=== PATIENT | female | born 1960 | race Caucasian/White ===

== ENCOUNTER 2018-02-04 17:11 | Emergency (ER) | payer OTHER ==
[~2018-02-04] VITALS: Ht 167.6 cm; Wt 77.7 kg
[2018-02-04 17:46] LABS: BASOPHILS % (AUTO) 0.9 % (0.0-2.0); EOSINOPHILS % (AUTO) 2.4 % (1.0-6.0); HEMATOCRIT 36.7 % (36-46); HEMOGLOBIN 12.5 g/dL (12.0-16.0); LYMPHOCYTES # (AUTO) 1.4 K/uL (1.0-4.8); LYMPHOCYTES % (AUTO) 25.6 % (22.0-44.0); MEAN CORPUSCULAR HEMOGLOBIN 31.7 pg (26.0-34.0); MEAN CORPUSCULAR VOLUME 93 fL (80-100); MONOCYTES # (AUTO) 0.4 K/uL (0.1-1.0); MONOCYTES % (AUTO) 6.7 % (2.0-9.0); NEUTROPHILS # (AUTO) 3.4 K/uL (1.8-7.7); NEUTROPHILS % (AUTO) 64.4 % (40.0-70.0); PLATELET COUNT (AUTO) 207 K/uL (150-450); RED BLOOD CELL COUNT(AUTO) 3.94 MIL/uL (4.00-5.20); RED CELL DISTRIBUTION WIDTH 12.5 % (11.5-14.5)
[2018-02-04 17:54] LABS: ANION GAP 3 mmol/L (8-16); CALCIUM, TOTAL 8.6 mg/dL (8.8-10.5); CARBON DIOXIDE 31 mmol/L (22-29); CHLORIDE 103 mmol/L (98-107); CREATININE 0.97 mg/dL (0.60-1.30); GLOMERULAR FILTR. RATE CALC 59 mL/min (>60); GLUCOSE,RANDOM 177 mg/dL (70-110); POTASSIUM 4.2 mmol/L (3.5-5.1); SODIUM SERUM 137 mmol/L (136-145); UREA NITROGEN, BLOOD 9 mg/dL (7-18)
[2018-02-04 18:02] LABS: ALANINE AMINOTRANSFERASE 17 U/L (12-78); ALBUMIN 3.2 g/dL (3.4-5.0); ALKALINE PHOSPHATASE 42 U/L (46-116); ASPARTATE AMINOTRANSFERASE 16 U/L (15-37); BILIRUBIN,TOTAL 0.3 mg/dL (0.1-1.0); TOTAL PROTEIN, SERUM 6.2 g/dL (6.4-8.2)
[2018-02-04] MEDS ORDERED: LITH300T PO (18:23)
[2018-02-04] MEDS ORDERED: LEVO175T58 PO (18:23)
[2018-02-04] MEDS ORDERED: TRAZ-220 PO (18:23)
[2018-02-04] MEDS ORDERED: PERP16TA5 PO (18:23)
[2018-02-04] MEDS ORDERED: FENO160T16 PO (18:23)
[2018-02-04] MEDS ORDERED: DIVA500T52 PO (18:23)
[2018-02-04] MEDS ORDERED: ATEN25TA PO (18:23)
[2018-02-04] MEDS ORDERED: OXYB5 PO (18:23)
[2018-02-04 18:58] LABS: LITHIUM 0.31 mmol/L (0.60-1.20)
[2018-02-04 18:59] LABS: APPEARANCE,URINE CLEAR (CLEAR); BILIRUBIN,URINE NEGATIVE (NEGATIVE); GLUCOSE, URINE (UA) NEGATIVE (NEGATIVE); KETONES,URINE NEGATIVE (NEGATIVE); LEUKOCYTE ESTERASE ,URINE MODERATE (NEGATIVE); NITRATE,URINE NEGATIVE (NEGATIVE); OCCULT BLOOD,URINE NEGATIVE (NEGATIVE); PH,URINE 7.5 (5.0-8.0); PROTEIN,URINE NEGATIVE (NEGATIVE); UROBILINOGEN,URINE 0.2 mg/dL (<=1.0)
[2018-02-04 19:04] LABS: AMPHET/METH SCREEN,URINE NEGATIVE (NEGATIVE); BACTERIA,URINE Many /HPF (None Seen); BARBITURATE SCREEN, URINE NEGATIVE (NEGATIVE); BENZODIAZEPINES SCREEN,URINE NEGATIVE (NEGATIVE); CANNABINOID SCREEN,URINE NEGATIVE (NEGATIVE); COCAINE SCREEN,URINE NEGATIVE (NEGATIVE); METHADONE SCREEN, URINE NEGATIVE (NEGATIVE); OPIATE SCREEN,URINE NEGATIVE (NEGATIVE); RBC,URINE None Seen /HPF (0-2); SQUAMOUS EPITHELIAL CELL,UR Rare /LPF (None Seen)
[2018-02-04 19:12] LABS: THYROID STIMULATING HORMONE 0.32 uIU/mL (0.36-3.74); VALPROIC ACID 33 mcg/mL (50-100)
[2018-02-04 19:13] LABS: PHENCYCLIDINE SCREEN,URINE NEGATIVE (NEGATIVE)
[2018-02-04] MEDS ORDERED: NITROFURANTOIN/NITROFURAN MAC 100 MG CAPSULE [MACROBID] PO ONE (19:45)
[2018-02-05 01:00] VITALS: BP 126/77
== END 2018-02-05 01:55 | disposition other institution (70) ==
LOC: EMS 17:12
DX: F31.9 Bipolar disorder, unspecified (principal); N39.0 Urinary tract infection, site not specified; F20.9 Schizophrenia, unspecified; F17.210 Nicotine dependence, cigarettes, uncomplicated; Z88.5 Allergy status to narcotic agent; Z88.8 Allergy status to other drugs, medicaments and biological substances; Z79.899 Other long term (current) drug therapy
CPT/HCPCS: 36415; 80053; 80164; 80178; 80307; 81001; 84443; 85025; 87077; 87086; 87186; 99285; 99406; G0480

== ENCOUNTER 2020-01-06 17:12 | Emergency (ER) | payer OTHER ==
[~2020-01-06] VITALS: Ht 167.6 cm; Wt 80.0 kg
[~2020-01-06 17:12] MED LIST: ATEN-73 PO; DIVA-80 PO; FENO160T16 PO; LEVO175T58 PO; LITH300T PO; OXYB5 PO; PERP16TA5 PO; TRAZ-257 PO
[2020-01-06 18:07] LABS: BASOPHILS % (AUTO) 0.6 % (0.0-2.0); EOSINOPHILS % (AUTO) 1.9 % (1.0-6.0); HEMOGLOBIN 15.4 g/dL (12.0-16.0); LYMPHOCYTES # (AUTO) 2.6 K/uL (1.0-4.8); LYMPHOCYTES % (AUTO) 28.2 % (22.0-44.0); MEAN CORPUSCULAR HEMOGLOBIN 31.4 pg (26.0-34.0); MEAN CORPUSCULAR HGB CONC 33.4 G/dL (31.0-37.0); MEAN CORPUSCULAR VOLUME 94 fL (80-100); MONOCYTES # (AUTO) 0.6 K/uL (0.1-1.0); NEUTROPHILS # (AUTO) 5.8 K/uL (1.8-7.7); NEUTROPHILS % (AUTO) 63.3 % (40.0-70.0); PLATELET COUNT (AUTO) 266 K/uL (150-450); RED BLOOD CELL COUNT(AUTO) 4.89 MIL/uL (4.00-5.20); RED CELL DISTRIBUTION WIDTH 13.4 % (11.5-14.5)
[2020-01-06 18:13] LABS: AMPHET/METH SCREEN,URINE NEGATIVE (NEGATIVE); BARBITURATE SCREEN, URINE NEGATIVE (NEGATIVE); BENZODIAZEPINES SCREEN,URINE NEGATIVE (NEGATIVE); CANNABINOID SCREEN,URINE NEGATIVE (NEGATIVE); COCAINE SCREEN,URINE NEGATIVE (NEGATIVE); METHADONE SCREEN, URINE NEGATIVE (NEGATIVE); OPIATE SCREEN,URINE NEGATIVE (NEGATIVE)
[2020-01-06 18:14] LABS: PHENCYCLIDINE SCREEN,URINE NEGATIVE (NEGATIVE)
[2020-01-06 18:22] LABS: ANION GAP 5 mmol/L (8-16); CALCIUM, TOTAL 8.9 mg/dL (8.8-10.5); CARBON DIOXIDE 29 mmol/L (22-29); CHLORIDE 105 mmol/L (98-107); CREATININE 1.23 mg/dL (0.60-1.30); GLOMERULAR FILTR. RATE CALC 44 mL/min (>60); GLUCOSE,RANDOM 128 mg/dL (70-110); POTASSIUM 4.4 mmol/L (3.5-5.1); SODIUM SERUM 139 mmol/L (136-145); UREA NITROGEN, BLOOD 21 mg/dL (7-18)
[2020-01-06 18:26] LABS: ALANINE AMINOTRANSFERASE 19 U/L (12-78); ALBUMIN 3.6 g/dL (3.4-5.0); ALKALINE PHOSPHATASE 39 U/L (46-116); ASPARTATE AMINOTRANSFERASE 15 U/L (15-37); BILIRUBIN,TOTAL 0.2 mg/dL (0.1-1.0); TOTAL PROTEIN, SERUM 6.6 g/dL (6.4-8.2)
[2020-01-06 20:55] LABS: COVID AG,FIA SOURCE NASOPHARYNGEAL
[2020-01-07] MEDS ORDERED: IBUPROFEN 400 MG TABLET PO ONE (00:30)
[2020-01-07] MEDS ORDERED: HALOPERIDOL 5 MG TABLET ONE (04:13)
[2020-01-07] MEDS ORDERED: LORazepam 1 MG TABLET PO ONE (04:15)
[2020-01-07] MEDS ORDERED: HALOPERIDOL 5 MG TABLET PO ONE (04:15)
[2020-01-07 08:35] VITALS: BP 158/90
== END 2020-01-07 10:17 | disposition short-term general hospital (02) ==
LOC: EMS 17:21
DX: F29 Unspecified psychosis not due to a substance or known physiological condition (principal); R45.851 Suicidal ideations; F31.9 Bipolar disorder, unspecified; F20.9 Schizophrenia, unspecified; F17.210 Nicotine dependence, cigarettes, uncomplicated; Z20.828 Contact with and (suspected) exposure to other viral communicable diseases; Z88.5 Allergy status to narcotic agent; Z88.8 Allergy status to other drugs, medicaments and biological substances
CPT/HCPCS: 36415; 80053; 80307; 85025; 87426; 99285; G0480

== ENCOUNTER 2020-07-10 15:50 | Emergency (ER) | payer OTHER ==
[~2020-07-10] VITALS: Ht 175.3 cm; Wt 86.4 kg
[2020-07-10 16:51] LABS: AMPHET/METH SCREEN,URINE NEGATIVE (NEGATIVE); BARBITURATE SCREEN, URINE NEGATIVE (NEGATIVE); BENZODIAZEPINES SCREEN,URINE NEGATIVE (NEGATIVE); CANNABINOID SCREEN,URINE POSITIVE (NEGATIVE); COCAINE SCREEN,URINE NEGATIVE (NEGATIVE); METHADONE SCREEN, URINE NEGATIVE (NEGATIVE); OPIATE SCREEN,URINE NEGATIVE (NEGATIVE); PHENCYCLIDINE SCREEN,URINE NEGATIVE (NEGATIVE)
[2020-07-10 17:42] LABS: BASOPHILS % (AUTO) 0.6 % (0.0-2.0); EOSINOPHILS % (AUTO) 1.6 % (1.0-6.0); HEMATOCRIT 45.6 % (36-46); HEMOGLOBIN 15.4 g/dL (12.0-16.0); LYMPHOCYTES # (AUTO) 2.6 K/uL (1.0-4.8); MEAN CORPUSCULAR HGB CONC 33.7 G/dL (31.0-37.0); MEAN CORPUSCULAR VOLUME 92 fL (80-100); MONOCYTES # (AUTO) 0.8 K/uL (0.1-1.0); NEUTROPHILS # (AUTO) 4.5 K/uL (1.8-7.7); NEUTROPHILS % (AUTO) 55.8 % (40.0-70.0); PLATELET COUNT (AUTO) 267 K/uL (150-450); RED BLOOD CELL COUNT(AUTO) 4.96 MIL/uL (4.00-5.20); RED CELL DISTRIBUTION WIDTH 13.7 % (11.5-14.5)
[2020-07-10 18:01] LABS: ANION GAP 10 mmol/L (8-16); CALCIUM, TOTAL 9.4 mg/dL (8.8-10.5); CARBON DIOXIDE 29 mmol/L (22-29); CHLORIDE 99 mmol/L (98-107); CREATININE 1.14 mg/dL (0.60-1.30); GLOMERULAR FILTR. RATE CALC 48 mL/min (>60); GLUCOSE,RANDOM 375 mg/dL (70-110); POTASSIUM 4.2 mmol/L (3.5-5.1); SODIUM SERUM 138 mmol/L (136-145); UREA NITROGEN, BLOOD 28 mg/dL (7-18)
[2020-07-10 18:05] LABS: ALANINE AMINOTRANSFERASE 23 U/L (12-78); ALBUMIN 3.4 g/dL (3.4-5.0); ALKALINE PHOSPHATASE 73 U/L (46-116); ASPARTATE AMINOTRANSFERASE 14 U/L (15-37); BILIRUBIN,TOTAL 0.3 mg/dL (0.1-1.0); TOTAL PROTEIN, SERUM 6.9 g/dL (6.4-8.2)
[2020-07-10] MEDS ORDERED: LORazepam 2 MG TABLET PO ONE (18:45)
[2020-07-10 18:53] LABS: COVID AG,FIA SOURCE NASOPHARYNGEAL
[2020-07-10] MEDS ORDERED: NICOTINE POLACRILEX 4 MG LOZENGE PO ONE (19:00)
[2020-07-10] MEDS ORDERED: DIAZEPAM 5 MG/ML 2 ML SYRINGE IM ONE (19:15)
[2020-07-10 20:50] LABS: VALPROIC ACID 44 mcg/mL (50-100)
[2020-07-11 02:11] VITALS: BP 129/65
== END 2020-07-11 02:15 | disposition designated cancer center or children's hospital (05) ==
LOC: EMS 15:50
DX: F25.0 Schizoaffective disorder, bipolar type (principal); E11.65 Type 2 diabetes mellitus with hyperglycemia; F17.210 Nicotine dependence, cigarettes, uncomplicated; Z20.822 Contact with and (suspected) exposure to COVID-19
CPT/HCPCS: 36415; 80053; 80164; 80307; 85025; 87426; 96372; 99291; A9575; G0480; J1885

== ENCOUNTER 2020-10-20 08:34 | Emergency (ER) | payer OTHER ==
[~2020-10-20] VITALS: Ht 167.6 cm; Wt 86.4 kg
[2020-10-20] MEDS: DiphenhydrAMINE HCL 25 MG CAPSULE PO ONE ×2 (10:44→10:45)
[2020-10-20] MEDS ORDERED: LORazepam 2 MG TABLET PO ONE (10:45)
[2020-10-20] MEDS ORDERED: HALOPERIDOL 5 MG TABLET PO ONE (10:45)
[2020-10-20] MEDS ORDERED: NICOTINE 21 MG/24 HOUR PATCH TD ONE (11:00)
[2020-10-20 11:27] LABS: BASOPHILS % (AUTO) 0.7 % (0.0-2.0); EOSINOPHILS % (AUTO) 1.1 % (1.0-6.0); HEMATOCRIT 41.7 % (36-46); HEMOGLOBIN 14.1 g/dL (12.0-16.0); LYMPHOCYTES # (AUTO) 1.7 K/uL (1.0-4.8); LYMPHOCYTES % (AUTO) 25.2 % (22.0-44.0); MEAN CORPUSCULAR HEMOGLOBIN 32.5 pg (26.0-34.0); MEAN CORPUSCULAR HGB CONC 33.7 G/dL (31.0-37.0); MEAN CORPUSCULAR VOLUME 96 fL (80-100); MONOCYTES # (AUTO) 0.6 K/uL (0.1-1.0); MONOCYTES % (AUTO) 8.8 % (2.0-9.0); NEUTROPHILS # (AUTO) 4.3 K/uL (1.8-7.7); NEUTROPHILS % (AUTO) 64.2 % (40.0-70.0); PLATELET COUNT (AUTO) 239 K/uL (150-450); RED BLOOD CELL COUNT(AUTO) 4.33 MIL/uL (4.00-5.20); RED CELL DISTRIBUTION WIDTH 16.1 % (11.5-14.5)
[2020-10-20 11:45] LABS: ANION GAP 10 mmol/L (8-16); CALCIUM, TOTAL 9.5 mg/dL (8.8-10.5); CARBON DIOXIDE 26 mmol/L (22-29); CHLORIDE 102 mmol/L (98-107); CREATININE 0.94 mg/dL (0.60-1.30); GLOMERULAR FILTR. RATE CALC 60 mL/min (>60); GLUCOSE,RANDOM 135 mg/dL (70-110); POTASSIUM 4.4 mmol/L (3.5-5.1); SODIUM SERUM 138 mmol/L (136-145); UREA NITROGEN, BLOOD 26 mg/dL (7-18)
[2020-10-20 11:48] LABS: ALANINE AMINOTRANSFERASE 18 U/L (12-78); ALBUMIN 3.6 g/dL (3.4-5.0); ALKALINE PHOSPHATASE 53 U/L (46-116); ASPARTATE AMINOTRANSFERASE 13 U/L (15-37); BILIRUBIN,TOTAL 0.3 mg/dL (0.1-1.0); TOTAL PROTEIN, SERUM 6.8 g/dL (6.4-8.2)
[2020-10-20] MEDS ORDERED: LORazepam 1 MG TABLET PO ONE (15:30)
[2020-10-20 18:03] VITALS: BP 122/68
== END 2020-10-20 21:18 | disposition short-term general hospital (02) ==
LOC: EMS 08:34
DX: F25.9 Schizoaffective disorder, unspecified (principal); F31.9 Bipolar disorder, unspecified; F17.210 Nicotine dependence, cigarettes, uncomplicated; Z88.5 Allergy status to narcotic agent
CPT/HCPCS: 36415; 80053; 85025; 99285; G0480

== ENCOUNTER 2023-01-28 18:38 | Inpatient (IN) | payer MEDICARE, MEDICAID ==
[~2023-01-28] VITALS: Ht 165.1 cm; Wt 60.9 kg
[~2023-01-28 18:38] MED LIST changes: -DIVA-80 PO; +DIVA500T53 PO; -OXYB5 PO; +OXYB5TAB20 PO
[2023-01-28] MEDS ORDERED: DiphenhydrAMINE HCL 50 MG/ML VIAL IM ONE (20:00)
[2023-01-28] MEDS ORDERED: HALOPERIDOL LACTATE 5 MG/ML VIAL IM ONE (20:00)
[2023-01-28] MEDS ORDERED: LORazepam 2 MG/ML VIAL IM ONE (20:00)
[2023-01-28 21:07] LABS: BASOPHILS % (AUTO) 0.4 % (0.0-2.0); EOSINOPHILS % (AUTO) 0.4 % (1.0-6.0); HEMATOCRIT 36.8 % (36-46); HEMOGLOBIN 12.3 g/dL (12.0-16.0); LYMPHOCYTES # (AUTO) 2.5 K/uL (1.0-4.8); LYMPHOCYTES % (AUTO) 27.7 % (22.0-44.0); MEAN CORPUSCULAR HEMOGLOBIN 31.5 pg (26.0-34.0); MEAN CORPUSCULAR HGB CONC 33.4 G/dL (31.0-37.0); MEAN CORPUSCULAR VOLUME 94 fL (80-100); MONOCYTES # (AUTO) 0.8 K/uL (0.1-1.0); MONOCYTES % (AUTO) 9.3 % (2.0-9.0); NEUTROPHILS # (AUTO) 5.6 K/uL (1.8-7.7); NEUTROPHILS % (AUTO) 62.2 % (40.0-70.0); PLATELET COUNT (AUTO) 256 K/uL (150-450); RED BLOOD CELL COUNT(AUTO) 3.91 MIL/uL (4.00-5.20)
[2023-01-28 21:17] LABS: ANION GAP 7 mmol/L (8-16); CALCIUM, TOTAL 9.3 mg/dL (8.8-10.5); CARBON DIOXIDE 27 mmol/L (22-29); CHLORIDE 101 mmol/L (98-107); CREATININE 1.54 mg/dL (0.60-1.30); GLOMERULAR FILTR. RATE CALC 34 mL/min (>60); GLUCOSE,RANDOM 88 mg/dL (70-110); POTASSIUM 3.8 mmol/L (3.5-5.1); SODIUM SERUM 135 mmol/L (136-145); UREA NITROGEN, BLOOD 28 mg/dL (7-18)
[2023-01-28 21:18] LABS: SALICYLATE 5.2 mg/dL (2.8-20.0)
[2023-01-28 21:24] LABS: ALCOHOL, BLOOD (SERUM) < 3 mg/dL (0-10); TROPONIN I-HIGH SENSITIVITY 17 ng/L (<51)
[2023-01-28 21:25] LABS: ALANINE AMINOTRANSFERASE 22 U/L (12-78); ALBUMIN 2.7 g/dL (3.4-5.0); ALKALINE PHOSPHATASE 60 U/L (46-116); ASPARTATE AMINOTRANSFERASE 25 U/L (15-37); BILIRUBIN,TOTAL 0.3 mg/dL (0.1-1.0); TOTAL PROTEIN, SERUM 5.7 g/dL (6.4-8.2)
[2023-01-28 21:27] LABS: ACETAMINOPHEN < 2 mcg/mL (10-30); CREATINE KINASE, TOTAL ONLY 205 U/L (26-192); LIPASE 110 U/L (16-77)
[2023-01-28 21:28] LABS: COVID AG,FIA SOURCE NASAL SWAB
[2023-01-28] MEDS ORDERED: SODIUM CHLORIDE 0.9% 2,000 ML IV ONE (21:45)
[2023-01-28] MEDS ORDERED: PERTUSS(ACELL),DIPH,TET VAC/PF 0.5 ML SYRINGE IM. ONE (21:45)
[2023-01-28 21:46] LABS: SARS-COV2 (COVID) ANTIGEN,FIA Negative (Negative)
[2023-01-29] MEDS ORDERED: ZOLPIDEM TARTRATE 10 MG TABLET PO PRN (02:00)
[2023-01-29] MEDS ORDERED: ACETAMINOPHEN 325 MG TABLET PO PRN (12:30)
[2023-01-29] MEDS ORDERED: LOPERAMIDE HCL 2 MG CAPSULE PO PRN (12:30)
[2023-01-29] MEDS ORDERED: CloNIDine HCL 0.1 MG TABLET PO PRN (12:30)
[2023-01-29] MEDS ORDERED: ALBUTEROL SULFATE HFA 90 MCG/PUFF 8 GM INHALER IH PRN (12:30)
[2023-01-29] MEDS ORDERED: PETROLATUM,WHITE 28 GM JELLY TP PRN (12:30)
[2023-01-29] MEDS ORDERED: ONDANSETRON HCL 4 MG TABLET PO PRN (12:30)
[2023-01-29] MEDS ORDERED: MAG HYDROX/ALUMINUM HYD/SIMETH ES 30 ML SUSPENSION UDCUP PO PRN (12:30)
[2023-01-29] MEDS ORDERED: BACITRACIN 28 GM OINTMENT TP PRN (12:30)
[2023-01-29] MEDS ORDERED: OMEPRAZOLE 20 MG CAPSULE PO PRN (12:30)
[2023-01-29] MEDS ORDERED: DOCUSATE SODIUM 100 MG CAPSULE PO PRN (12:30)
[2023-01-29] MEDS ORDERED: BENZOCAINE/MENTHOL LOZENGE PO PRN (12:30)
[2023-01-29 15:31] VITALS: RESP 18
[2023-01-29] MEDS: IBUPROFEN 600 MG TABLET PO PRN (15:39)
[2023-01-29] MEDS: LORazepam 2 MG TABLET PO PRN (16:40)
[2023-01-29] MEDS: HALOPERIDOL 5 MG TABLET PO PRN (16:40)
[2023-01-29 16:41] VITALS: RESP 18
[2023-01-29] MEDS ORDERED: HALOPERIDOL LACTATE 5 MG/ML VIAL ONE ×2 (16:55→16:59)
[2023-01-29] MEDS ORDERED: LORazepam 2 MG/ML VIAL ONE (16:57)
[2023-01-29] MEDS ORDERED: LORazepam 2 MG/ML VIAL IM ONE (17:00)
[2023-01-29] MEDS ORDERED: DiphenhydrAMINE HCL 50 MG/ML VIAL IM ONE (17:00)
[2023-01-29] MEDS ORDERED: HALOPERIDOL LACTATE 5 MG/ML VIAL IM ONE (17:00)
[2023-01-29] MEDS ORDERED: INFLUENZA VIRUS VACCINE QVS 2023-24 (6MO+)/PF 60 MCG/0.5 ML SYRINGE IM. ONE (18:15)
[2023-01-29] MEDS ORDERED: PNEUMOCOCCAL VACCINE POLYVALENT 0.5 ML SYRINGE [PPSV23] IM. ONE (18:15)
[2023-01-29 20:38] VITALS: RESP 19
[2023-01-30 04:36] VITALS: RESP 18
[2023-01-30] MEDS: LORazepam 2 MG TABLET PO PRN ×2 (04:36→20:08)
[2023-01-30] MEDS: IBUPROFEN 600 MG TABLET PO PRN ×2 (04:37→20:08)
[2023-01-30] MEDS ORDERED: LEVOTHYROXINE SODIUM 50 MCG TABLET PO SCH (06:30)
[2023-01-30] MEDS ORDERED: LEVOTHYROXINE SODIUM 125 MCG TABLET PO SCH (06:30)
[2023-01-30] MEDS: LEVOTHYROXINE SODIUM 50 MCG TABLET PO SCH (06:45)
[2023-01-30] MEDS ORDERED: LEVOTHYROXINE SODIUM 175 MCG PO SCH (09:00)
[2023-01-30] MEDS: OXYBUTYNIN CHLORIDE 5 MG TABLET PO SCH (09:00)
[2023-01-30] MEDS: ATENOLOL 25 MG TABLET PO SCH (09:00)
[2023-01-30 09:39] VITALS: BP 90/58; PULSE 76; RESP 16; TEMP 98.1; O2SAT 96
[2023-01-30] MEDS ORDERED: METF-446 PO (12:29)
[2023-01-30] MEDS ORDERED: LEVO100 PO (12:29)
[2023-01-30] MEDS ORDERED: MELO-108 PO (12:29)
[2023-01-30] MEDS ORDERED: CHOL500013 PO (12:29)
[2023-01-30] MEDS ORDERED: ATEN-72 PO (12:29)
[2023-01-30] MEDS ORDERED: HYDR50CA6 PO (12:29)
[2023-01-30] MEDS ORDERED: CLIN30GE22 TP (12:29)
[2023-01-30] MEDS ORDERED: OMEG-189 PO (12:29)
[2023-01-30] MEDS ORDERED: LEVO125T95 PO (12:29)
[2023-01-30] MEDS: LITHIUM CARBONATE 300 MG TABLET PO SCH (12:30)
[2023-01-30] MEDS: DIVALPROEX SODIUM 500 MG ER TABLET PO SCH (12:53)
[2023-01-30 20:08] VITALS: RESP 17
[2023-01-30] MEDS: TraZODone HCL 100 MG TABLET PO SCH (20:08)
[2023-01-30 21:08] VITALS: RESP 16
[2023-01-30 22:01] VITALS: RESP 17
[2023-01-30] MEDS: TraMADol HCL 50 MG TABLET PO PRN (22:01)
[2023-01-30 23:14] VITALS: RESP 16
[2023-01-31] VITALS (8 sets, daily range): BP systolic 97–124; BP diastolic 61–85; PULSE 70–74; RESP 16–19; TEMP 97.5–97.8; O2SAT 97–98
[2023-01-31] MEDS: LEVOTHYROXINE SODIUM 50 MCG TABLET PO SCH (06:43)
[2023-01-31] MEDS: LITHIUM CARBONATE 300 MG TABLET PO SCH (08:41)
[2023-01-31] MEDS: DIVALPROEX SODIUM 500 MG ER TABLET PO SCH (08:41)
[2023-01-31] MEDS: OXYBUTYNIN CHLORIDE 5 MG TABLET PO SCH (08:41)
[2023-01-31] MEDS: TraMADol HCL 50 MG TABLET PO PRN (08:41)
[2023-01-31] MEDS: ATENOLOL 25 MG TABLET PO SCH (08:41)
[2023-01-31] MEDS: HALOPERIDOL 5 MG TABLET PO PRN (08:43)
[2023-01-31] MEDS: NICOTINE 21 MG/24 HOUR PATCH TD PRN (09:54)
[2023-01-31] MEDS: IBUPROFEN 600 MG TABLET PO PRN ×2 (09:54→18:00)
[2023-01-31] MEDS: LORazepam 2 MG TABLET PO PRN (09:54)
[2023-01-31] MEDS: LIDOCAINE 5% TRANSDERMAL PATCH TD SCH (15:40)
[2023-01-31] MEDS: TraZODone HCL 100 MG TABLET PO SCH (20:16)
[2023-01-31] MEDS: -LIDODERM PATCH NOTE- MISC SCH (21:55)
[2023-02-01] MEDS: LEVOTHYROXINE SODIUM 50 MCG TABLET PO SCH (06:43)
[2023-02-01 08:42] VITALS: RESP 17
[2023-02-01] MEDS: OXYBUTYNIN CHLORIDE 5 MG TABLET PO SCH (09:00)
[2023-02-01 10:15] VITALS: BP 114/71; PULSE 82; RESP 17; O2SAT 97
[2023-02-01] MEDS: ATENOLOL 25 MG TABLET PO SCH (10:18)
[2023-02-01] MEDS: DIVALPROEX SODIUM 500 MG ER TABLET PO SCH (10:18)
[2023-02-01] MEDS: LITHIUM CARBONATE 300 MG TABLET PO SCH (10:18)
[2023-02-01] MEDS: LIDOCAINE 5% TRANSDERMAL PATCH TD SCH (10:19)
[2023-02-01] MEDS: LORazepam 2 MG TABLET PO PRN (11:35)
[2023-02-01 13:22] VITALS: RESP 17
[2023-02-01] MEDS: IBUPROFEN 600 MG TABLET PO PRN (13:22)
[2023-02-01 14:22] VITALS: RESP 16
[2023-02-01 20:55] VITALS: TEMP 97.7
[2023-02-01] MEDS: TraZODone HCL 100 MG TABLET PO SCH (21:14)
[2023-02-01] MEDS: -LIDODERM PATCH NOTE- MISC SCH (21:22)
[2023-02-02] MEDS: LEVOTHYROXINE SODIUM 50 MCG TABLET PO SCH (06:38)
[2023-02-02] MEDS: LITHIUM CARBONATE 300 MG TABLET PO SCH (08:47)
[2023-02-02] MEDS: DIVALPROEX SODIUM 500 MG ER TABLET PO SCH (08:47)
[2023-02-02] MEDS: ATENOLOL 25 MG TABLET PO SCH (08:47)
[2023-02-02] MEDS: OXYBUTYNIN CHLORIDE 5 MG TABLET PO SCH (08:48)
[2023-02-02] MEDS: LIDOCAINE 5% TRANSDERMAL PATCH TD SCH (08:48)
[2023-02-02 09:06] VITALS: BP 145/89; PULSE 89; RESP 19; TEMP 97; O2SAT 99
[2023-02-02] MEDS: NICOTINE 21 MG/24 HOUR PATCH TD PRN (11:21)
[2023-02-02] MEDS ORDERED: NICOTINE 21 MG/24 HOUR PATCH TD SCH (13:00)
[2023-02-02] MEDS: MAGNESIUM HYDROXIDE SUSPENSION 30 ML UDCUP PO PRN (13:12)
[2023-02-02 20:10] VITALS: BP 145/79; PULSE 90; RESP 18; TEMP 97.9; O2SAT 96
[2023-02-02] MEDS: TraZODone HCL 100 MG TABLET PO SCH (20:41)
[2023-02-02] MEDS: -LIDODERM PATCH NOTE- MISC SCH (20:41)
[2023-02-03] MEDS: LEVOTHYROXINE SODIUM 50 MCG TABLET PO SCH (06:03)
[2023-02-03 08:13] VITALS: BP 102/67; PULSE 84; RESP 17; TEMP 97.3; O2SAT 98
[2023-02-03] MEDS: DIVALPROEX SODIUM 500 MG ER TABLET PO SCH (08:33)
[2023-02-03] MEDS: OXYBUTYNIN CHLORIDE 5 MG TABLET PO SCH (08:34)
[2023-02-03] MEDS: NICOTINE 21 MG/24 HOUR PATCH TD SCH (08:34)
[2023-02-03] MEDS: ATENOLOL 25 MG TABLET PO SCH (08:34)
[2023-02-03] MEDS: LIDOCAINE 5% TRANSDERMAL PATCH TD SCH (08:38)
[2023-02-03] MEDS: MAGNESIUM HYDROXIDE SUSPENSION 30 ML UDCUP PO PRN (08:59)
[2023-02-03] MEDS: LITHIUM CARBONATE 300 MG TABLET PO SCH (09:00)
[2023-02-03] MEDS: LORazepam 2 MG TABLET PO PRN (10:08)
[2023-02-03 20:10] VITALS: RESP 18
[2023-02-03] MEDS: TraZODone HCL 100 MG TABLET PO SCH (20:56)
[2023-02-03] MEDS: -LIDODERM PATCH NOTE- MISC SCH (20:56)
[2023-02-03] MEDS: IBUPROFEN 600 MG TABLET PO PRN (22:58)
[2023-02-03 23:00] VITALS: BP 156/98; PULSE 107; RESP 18; TEMP 97.5; O2SAT 96
[2023-02-04] VITALS: RESP 18
[2023-02-04] MEDS: LEVOTHYROXINE SODIUM 50 MCG TABLET PO SCH (06:08)
[2023-02-04 08:24] LABS: APPEARANCE,URINE CLEAR (CLEAR); BILIRUBIN,URINE NEGATIVE (NEGATIVE); COLOR,URINE LIGHT YELLOW (YELLOW); GLUCOSE, URINE (UA) NEGATIVE (NEGATIVE); KETONES,URINE NEGATIVE (NEGATIVE); LEUKOCYTE ESTERASE ,URINE NEGATIVE (NEGATIVE); NITRATE,URINE NEGATIVE (NEGATIVE); OCCULT BLOOD,URINE NEGATIVE (NEGATIVE); PROTEIN,URINE NEGATIVE (NEGATIVE); UROBILINOGEN,URINE <=1.0 mg/dL (<=1.0)
[2023-02-04 08:29] LABS: AMPHET/METH SCREEN,URINE NEGATIVE (NEGATIVE); BARBITURATE SCREEN, URINE NEGATIVE (NEGATIVE); BENZODIAZEPINES SCREEN,URINE NEGATIVE (NEGATIVE); CANNABINOID SCREEN,URINE POSITIVE (NEGATIVE); COCAINE SCREEN,URINE NEGATIVE (NEGATIVE); METHADONE SCREEN, URINE NEGATIVE (NEGATIVE); OPIATE SCREEN,URINE NEGATIVE (NEGATIVE); PHENCYCLIDINE SCREEN,URINE NEGATIVE (NEGATIVE)
[2023-02-04 08:32] LABS: ALCOHOL, URINE DRUG SCREEN NEGATIVE (NEGATIVE)
[2023-02-04 08:43] VITALS: BP 106/71; PULSE 99; RESP 17; TEMP 97.3; O2SAT 98
[2023-02-04 08:55] LABS: BACTERIA,URINE None Seen /HPF (None Seen); RBC,URINE None Seen /HPF (0-2); SQUAMOUS EPITHELIAL CELL,UR None Seen /LPF (None Seen); WBC,URINE None Seen /HPF (0-5)
[2023-02-04] MEDS: LITHIUM CARBONATE 300 MG TABLET PO SCH ×2 (09:00→09:04)
[2023-02-04] MEDS: OXYBUTYNIN CHLORIDE 5 MG TABLET PO SCH ×2 (09:00→09:04)
[2023-02-04] MEDS: DIVALPROEX SODIUM 500 MG ER TABLET PO SCH (09:04)
[2023-02-04] MEDS: IBUPROFEN 600 MG TABLET PO PRN ×2 (09:04→20:43)
[2023-02-04] MEDS: ATENOLOL 25 MG TABLET PO SCH (09:04)
[2023-02-04] MEDS: NICOTINE 21 MG/24 HOUR PATCH TD SCH (09:13)
[2023-02-04] MEDS: LIDOCAINE 5% TRANSDERMAL PATCH TD SCH (09:14)
[2023-02-04] MEDS: LORazepam 2 MG TABLET PO PRN ×2 (10:37→20:48)
[2023-02-04 20:39] VITALS: BP 112/71; PULSE 93; RESP 18; TEMP 97.4; O2SAT 98
[2023-02-04 20:40] VITALS: BP 106/71; PULSE 93; RESP 18; TEMP 97.4; O2SAT 98
[2023-02-04] MEDS: TraZODone HCL 100 MG TABLET PO SCH (20:48)
[2023-02-04] MEDS: -LIDODERM PATCH NOTE- MISC SCH (20:48)
[2023-02-04 21:56] VITALS: RESP 18
[2023-02-05] MEDS: LEVOTHYROXINE SODIUM 50 MCG TABLET PO SCH (07:08)
[2023-02-05 08:28] VITALS: BP 135/94; PULSE 112; RESP 19; TEMP 97.8; O2SAT 98
[2023-02-05] MEDS: NICOTINE 21 MG/24 HOUR PATCH TD SCH (08:37)
[2023-02-05] MEDS: ATENOLOL 25 MG TABLET PO SCH (08:37)
[2023-02-05] MEDS: DIVALPROEX SODIUM 500 MG ER TABLET PO SCH (08:37)
[2023-02-05] MEDS: OXYBUTYNIN CHLORIDE 5 MG TABLET PO SCH (08:37)
[2023-02-05] MEDS: LIDOCAINE 5% TRANSDERMAL PATCH TD SCH (08:37)
[2023-02-05 12:40] VITALS: RESP 18
[2023-02-05] MEDS: LORazepam 2 MG TABLET PO PRN ×2 (12:40→23:59)
[2023-02-05 13:40] VITALS: RESP 17
[2023-02-05 20:23] VITALS: BP 142/83; PULSE 76; RESP 18; TEMP 98.1; O2SAT 99
[2023-02-05] MEDS: TraZODone HCL 100 MG TABLET PO SCH (20:41)
[2023-02-05] MEDS: -LIDODERM PATCH NOTE- MISC SCH (21:42)
[2023-02-06] MEDS: LEVOTHYROXINE SODIUM 50 MCG TABLET PO SCH (06:38)
[2023-02-06 08:10] VITALS: BP 110/60; PULSE 90; RESP 18; TEMP 98; O2SAT 100
[2023-02-06] MEDS: DIVALPROEX SODIUM 500 MG ER TABLET PO SCH (08:10)
[2023-02-06] MEDS: NICOTINE 21 MG/24 HOUR PATCH TD SCH (08:10)
[2023-02-06] MEDS: ATENOLOL 25 MG TABLET PO SCH (08:10)
[2023-02-06] MEDS: LIDOCAINE 5% TRANSDERMAL PATCH TD SCH (08:12)
[2023-02-06] MEDS: OXYBUTYNIN CHLORIDE 5 MG TABLET PO SCH (08:26)
[2023-02-06 10:23] VITALS: BP 110/60; PULSE 90; RESP 18; TEMP 98; O2SAT 100
[2023-02-06] MEDS ORDERED: LEVO150 PO (15:07)
[2023-02-06] MEDS ORDERED: ATEN-73 PO (15:11)
[2023-02-06] MEDS ORDERED: LEVO25TA9 PO (15:12)
== END 2023-02-06 16:05 | disposition home or self-care (01) | DRG 885 ==
LOC: EMS 18:38 → B2X 01-29 09:37
PROVIDERS: ADMIT Psychiatry & Neurology Psychiatry; ATTEND Psychiatry & Neurology Psychiatry
DX: F25.1 Schizoaffective disorder, depressive type (principal); N17.9 Acute kidney failure, unspecified; F23 Brief psychotic disorder; R62.7 Adult failure to thrive; K59.00 Constipation, unspecified; E03.9 Hypothyroidism, unspecified; E78.5 Hyperlipidemia, unspecified; F41.9 Anxiety disorder, unspecified; G47.00 Insomnia, unspecified; I10 Essential (primary) hypertension; F12.90 Cannabis use, unspecified, uncomplicated; Z20.822 Contact with and (suspected) exposure to COVID-19; F17.210 Nicotine dependence, cigarettes, uncomplicated; Z88.5 Allergy status to narcotic agent; Z88.8 Allergy status to other drugs, medicaments and biological substances
CPT/HCPCS: 71045; 80053; 80164; 80307; 81001; 81003; 82550; 83690; 84484; 85025; 99285; G0480; G0481; J1200; J1630; J2060; 36415-L1; 36415-TC

== ENCOUNTER 2023-02-21 13:43 | Emergency (ER) | payer MEDICARE, OTHER ==
[~2023-02-21] VITALS: Ht 157.5 cm; Wt 72.7 kg
[~2023-02-21 13:43] MED LIST changes: -FENO160T16 PO; +LEVO150 PO; -LEVO175T58 PO; +LEVO25TA9 PO; -LITH300T PO; -OXYB5TAB20 PO; -PERP16TA5 PO
[2023-02-21 13:54] VITALS: BP 122/78; PULSE 91; RESP 18; TEMP 98.5
[2023-02-21] MEDS ORDERED: LORazepam 2 MG TABLET PO ONE (14:45)
[2023-02-21] MEDS ORDERED: HALOPERIDOL 5 MG TABLET PO ONE (14:45)
[2023-02-21] MEDS ORDERED: LEVO100 PO (14:50)
[2023-02-21] MEDS ORDERED: PRED5TAB2 PO (14:50)
[2023-02-21] MEDS ORDERED: METF-446 PO (14:50)
[2023-02-21] MEDS ORDERED: HYDR50CA6 PO (14:50)
[2023-02-21] MEDS ORDERED: ATEN-72 PO (14:50)
[2023-02-21] MEDS ORDERED: FENO160T16 PO (14:50)
[2023-02-21] MEDS ORDERED: OMEG-189 PO (14:50)
[2023-02-21] MEDS ORDERED: DiphenhydrAMINE HCL 50 MG/ML VIAL IM ONE (15:15)
[2023-02-21] MEDS ORDERED: ZIPRASIDONE MESYLATE 20 MG/VIAL IM ONE (15:15)
== END 2023-02-21 17:45 | disposition home or self-care (01) ==
LOC: EMS 13:46
DX: S00.03XA Contusion of scalp, initial encounter (principal); S40.012A Contusion of left shoulder, initial encounter; F25.9 Schizoaffective disorder, unspecified; F17.200 Nicotine dependence, unspecified, uncomplicated; Z88.5 Allergy status to narcotic agent; Z88.8 Allergy status to other drugs, medicaments and biological substances; Y08.89XA Assault by other specified means, initial encounter; Y93.89 Activity, other specified; Y92.89 Other specified places as the place of occurrence of the external cause; Y99.8 Other external cause status
CPT/HCPCS: 99285; 70450; 73030; 96372; J1200; J3486

== ENCOUNTER 2023-03-06 13:05 | Inpatient (IN) | payer MEDICARE, MEDICAID ==
[~2023-03-06] VITALS: Ht 165.1 cm; Wt 81.8 kg
[~2023-03-06 13:05] MED LIST changes: +ATEN-72 PO; -ATEN-73 PO; +DIVA-54 PO; -DIVA500T53 PO; +HALO5TAB23 PO; +LEVO125 PO; -LEVO150 PO; -LEVO25TA9 PO; +METF-446 PO; +PRED5TAB2 PO; -TRAZ-257 PO
[2023-03-06 13:33] LABS: COVID AG,FIA SOURCE NASAL SWAB
[2023-03-06 13:38] LABS: BASOPHILS % (AUTO) 0.8 % (0.0-2.0); EOSINOPHILS % (AUTO) 1.4 % (1.0-6.0); HEMATOCRIT 36.5 % (36-46); HEMOGLOBIN 12.3 g/dL (12.0-16.0); LYMPHOCYTES # (AUTO) 2.4 K/uL (1.0-4.8); LYMPHOCYTES % (AUTO) 27.4 % (22.0-44.0); MEAN CORPUSCULAR HEMOGLOBIN 31.4 pg (26.0-34.0); MEAN CORPUSCULAR HGB CONC 33.6 G/dL (31.0-37.0); MEAN CORPUSCULAR VOLUME 93 fL (80-100); MONOCYTES % (AUTO) 11.4 % (2.0-9.0); NEUTROPHILS # (AUTO) 5.2 K/uL (1.8-7.7); PLATELET COUNT (AUTO) 176 K/uL (150-450); RED BLOOD CELL COUNT(AUTO) 3.91 MIL/uL (4.00-5.20); RED CELL DISTRIBUTION WIDTH 13.6 % (11.5-14.5); WHITE BLOOD COUNT (AUTO) 8.8 K/uL (4.5-11.0)
[2023-03-06 13:41] LABS: RBC MORPHOLOGY COMMENT NORMAL RBC MORPH
[2023-03-06 13:46] LABS: ANION GAP 6 mmol/L (8-16); CARBON DIOXIDE 30 mmol/L (22-29); CHLORIDE 102 mmol/L (98-107); GLOMERULAR FILTR. RATE CALC 38 mL/min (>60); GLUCOSE,RANDOM 89 mg/dL (70-110); POTASSIUM 4.5 mmol/L (3.5-5.1); SODIUM SERUM 138 mmol/L (136-145); UREA NITROGEN, BLOOD 28 mg/dL (7-18)
[2023-03-06 13:51] LABS: ALANINE AMINOTRANSFERASE 16 U/L (12-78); ALKALINE PHOSPHATASE 75 U/L (46-116); ASPARTATE AMINOTRANSFERASE 16 U/L (15-37); BILIRUBIN,TOTAL 0.2 mg/dL (0.1-1.0); TOTAL PROTEIN, SERUM 6.7 g/dL (6.4-8.2)
[2023-03-06 13:55] LABS: ALCOHOL, BLOOD (SERUM) < 3 mg/dL (0-10)
[2023-03-06 13:58] LABS: SARS-COV2 (COVID) ANTIGEN,FIA Negative (Negative)
[2023-03-06 14:21] LABS: PH,URINE DRUG SCREEN 7.5 (5.0-8.0)
[2023-03-06 14:27] LABS: ALCOHOL, URINE DRUG SCREEN NEGATIVE (NEGATIVE); AMPHET/METH SCREEN,URINE NEGATIVE (NEGATIVE); BARBITURATE SCREEN, URINE NEGATIVE (NEGATIVE); BENZODIAZEPINES SCREEN,URINE NEGATIVE (NEGATIVE); CANNABINOID SCREEN,URINE NEGATIVE (NEGATIVE); COCAINE SCREEN,URINE NEGATIVE (NEGATIVE); METHADONE SCREEN, URINE NEGATIVE (NEGATIVE); OPIATE SCREEN,URINE NEGATIVE (NEGATIVE); PHENCYCLIDINE SCREEN,URINE NEGATIVE (NEGATIVE)
[2023-03-06] MEDS: NICOTINE 21 MG/24 HOUR PATCH TD ONE (17:05)
[2023-03-06] MEDS: ZOLPIDEM TARTRATE 10 MG TABLET PO PRN (19:50)
[2023-03-06] MEDS: HALOPERIDOL 5 MG TABLET PO PRN (23:14)
[2023-03-06] MEDS: LORazepam 2 MG TABLET PO PRN (23:14)
[2023-03-07] MEDS: LIDOCAINE 5% TRANSDERMAL PATCH TD PRN (12:29)
[2023-03-07] MEDS: DiphenhydrAMINE HCL 25 MG CAPSULE PO ONE (15:51)
[2023-03-07] MEDS: HALOPERIDOL 5 MG TABLET PO ONE (15:51)
[2023-03-07] MEDS: LORazepam 2 MG TABLET PO ONE (15:51)
[2023-03-07] MEDS: DiphenhydrAMINE HCL 50 MG/ML VIAL IM ONE (19:35)
[2023-03-07] MEDS: HALOPERIDOL LACTATE 5 MG/ML VIAL IM ONE (19:35)
[2023-03-07] MEDS: LORazepam 2 MG/ML VIAL IM ONE (19:35)
[2023-03-08 12:28] LABS: APPEARANCE,URINE CLEAR (CLEAR); BILIRUBIN,URINE NEGATIVE (NEGATIVE); COLOR,URINE LIGHT YELLOW (YELLOW); GLUCOSE, URINE (UA) NEGATIVE (NEGATIVE); KETONES,URINE NEGATIVE (NEGATIVE); LEUKOCYTE ESTERASE ,URINE NEGATIVE (NEGATIVE); NITRATE,URINE NEGATIVE (NEGATIVE); OCCULT BLOOD,URINE NEGATIVE (NEGATIVE); PH,URINE 6.5 (5.0-8.0); PROTEIN,URINE NEGATIVE (NEGATIVE); SPECIFIC GRAVITIY, URINE 1.013 (1.003-1.030); UROBILINOGEN,URINE <=1.0 mg/dL (<=1.0)
[2023-03-08] MEDS: ACETAMINOPHEN 325 MG TABLET PO PRN (14:51)
[2023-03-08 17:34] VITALS: BP 120/64; PULSE 92; RESP 18; TEMP 97; O2SAT 96
[2023-03-08] MEDS: INFLUENZA VIRUS VACCINE QVS 2023-24 (6MO+)/PF 60 MCG/0.5 ML SYRINGE IM. ONE (18:15)
[2023-03-08] MEDS: PNEUMOCOCCAL VACCINE POLYVALENT 0.5 ML SYRINGE [PPSV23] IM. ONE (18:15)
[2023-03-08] MEDS ORDERED: IBUPROFEN 400 MG TABLET PO PRN (20:00)
[2023-03-08] MEDS: LORazepam 1 MG TABLET PO PRN (20:20)
[2023-03-08 20:41] VITALS: BP 98/76; PULSE 100; RESP 18; TEMP 97.6; O2SAT 97
[2023-03-08] MEDS: MELOXICAM 7.5 MG TABLET PO ONE (21:49)
[2023-03-08] MEDS: ATENOLOL 25 MG TABLET PO ONE (22:16)
[2023-03-08] MEDS: LORazepam 2 MG/ML VIAL IM ONE (22:19)
[2023-03-08] MEDS: ChlorproMAZINE HCL 50 MG/2 ML AMP IM ONE (22:20)
[2023-03-08] MEDS: DiphenhydrAMINE HCL 50 MG/ML VIAL IM ONE (22:20)
[2023-03-08 23:20] VITALS: BP 119/69; PULSE 104; RESP 19; TEMP 97.6; O2SAT 98
[2023-03-09] MEDS ORDERED: PETROLATUM,WHITE 28 GM JELLY TP PRN (06:00)
[2023-03-09] MEDS ORDERED: ONDANSETRON HCL 4 MG TABLET PO PRN (06:00)
[2023-03-09] MEDS ORDERED: LOPERAMIDE HCL 2 MG CAPSULE PO PRN (06:00)
[2023-03-09] MEDS ORDERED: ALBUTEROL SULFATE HFA 90 MCG/PUFF 8 GM INHALER IH PRN (06:00)
[2023-03-09] MEDS ORDERED: BACITRACIN 28 GM OINTMENT TP PRN (06:00)
[2023-03-09] MEDS ORDERED: BENZOCAINE/MENTHOL LOZENGE PO PRN (06:00)
[2023-03-09] MEDS ORDERED: CloNIDine HCL 0.1 MG TABLET PO PRN (06:00)
[2023-03-09] MEDS ORDERED: OMEPRAZOLE 20 MG CAPSULE PO PRN (06:00)
[2023-03-09] MEDS: MELOXICAM 7.5 MG TABLET PO SCH (06:42)
[2023-03-09] MEDS: ATENOLOL 25 MG TABLET PO SCH (08:28)
[2023-03-09 10:00] VITALS: RESP 18
[2023-03-09] MEDS: DICLOFENAC SODIUM 1% 100 GM GEL [2GM] TP PRN (18:26)
[2023-03-09 22:08] VITALS: BP 114/79; PULSE 74; RESP 18; TEMP 97.8; O2SAT 98
[2023-03-09] MEDS ORDERED: LORazepam 2 MG/ML VIAL ONE (22:17)
[2023-03-09] MEDS ORDERED: ChlorproMAZINE HCL 50 MG/2 ML AMP ONE (22:17)
[2023-03-09] MEDS: LORazepam 2 MG/ML VIAL IM ONE (22:30)
[2023-03-09] MEDS: ChlorproMAZINE HCL 50 MG/2 ML AMP IM ONE (22:30)
[2023-03-10 02:01] VITALS: BP 118/79; PULSE 79; RESP 18; TEMP 97.7
[2023-03-10] MEDS: IBUPROFEN 600 MG TABLET PO PRN (02:05)
[2023-03-10 06:32] VITALS: BP 117/69; PULSE 74; RESP 17; TEMP 97.9
[2023-03-10] MEDS: ChlorproMAZINE HCL 100 MG TABLET PO SCH (08:03)
[2023-03-10] MEDS: DIVALPROEX SODIUM 500 MG DR TABLET PO SCH (08:03)
[2023-03-10 10:34] VITALS: BP 114/79; PULSE 75; RESP 18; TEMP 97.7
[2023-03-10 20:07] VITALS: BP 125/81; PULSE 91; RESP 18; TEMP 98.8; O2SAT 98
[2023-03-10] MEDS: ChlorproMAZINE HCL 50 MG/2 ML AMP IM ONE (20:40)
[2023-03-10] MEDS: LORazepam 2 MG/ML VIAL IM ONE (20:40)
[2023-03-10] MEDS: -LIDODERM PATCH NOTE- MISC SCH (20:41)
[2023-03-11 07:06] VITALS: RESP 17
[2023-03-11 08:02] VITALS: RESP 18; TEMP 98.3
[2023-03-11] MEDS: LIDOCAINE 5% TRANSDERMAL PATCH TD SCH (08:41)
[2023-03-11 20:30] VITALS: BP 114/81; PULSE 85; RESP 18; TEMP 97.6
[2023-03-11 21:03] VITALS: RESP 18
[2023-03-11 22:02] VITALS: RESP 18
[2023-03-12 08:05] VITALS: BP 119/66; PULSE 84; RESP 18; TEMP 97.6; O2SAT 99
[2023-03-12 10:29] VITALS: RESP 17
[2023-03-12] MEDS: ACETAMINOPHEN 325 MG TABLET PO PRN (10:29)
[2023-03-12 11:29] VITALS: RESP 18
[2023-03-12 15:49] VITALS: RESP 18
[2023-03-12 16:49] VITALS: RESP 17
[2023-03-12 21:19] VITALS: BP 129/81; PULSE 86; RESP 18; TEMP 97.6
[2023-03-13 09:23] VITALS: BP 115/69; PULSE 90; RESP 18; TEMP 97.1; O2SAT 98
[2023-03-13] MEDS: NICOTINE 21 MG/24 HOUR PATCH TD PRN (14:06)
[2023-03-13 14:10] VITALS: RESP 18
[2023-03-13] MEDS: CYCLOBENZAPRINE HCL 10 MG TABLET PO PRN (15:19)
[2023-03-13 18:46] VITALS: RESP 18
[2023-03-13 20:00] VITALS: BP 112/61; PULSE 75; RESP 18; TEMP 97.2
[2023-03-14 08:01] VITALS: BP 106/64; PULSE 74; RESP 18; TEMP 97.8
[2023-03-14] MEDS: MAG HYDROX/ALUMINUM HYD/SIMETH ES 30 ML SUSPENSION UDCUP PO PRN (21:36)
[2023-03-14 21:55] VITALS: BP 97/69; PULSE 75; RESP 18; TEMP 97.6
[2023-03-15] VITALS (8 sets, daily range): BP systolic 104–124; BP diastolic 60–72; PULSE 72–91; RESP 17–18; TEMP 97.5–97.8; O2SAT 97–98
[2023-03-16] MEDS: NICOTINE 21 MG/24 HOUR PATCH TD SCH (08:34)
[2023-03-16 08:52] VITALS: RESP 16; TEMP 98.6
[2023-03-16 20:09] VITALS: BP 140/84; PULSE 82; RESP 18; TEMP 98.2; O2SAT 98
[2023-03-17 08:20] VITALS: BP 121/78; PULSE 97; RESP 17; TEMP 97.4; O2SAT 97
[2023-03-17 19:09] VITALS: BP 124/73; PULSE 86; RESP 18
[2023-03-17 20:10] VITALS: BP 132/80; PULSE 74; RESP 18; TEMP 98.1; O2SAT 97
[2023-03-18 06:40] VITALS: RESP 17
[2023-03-18 08:03] VITALS: BP 130/80; PULSE 79; RESP 18; TEMP 98.6; O2SAT 97
[2023-03-18] MEDS: PredniSONE 5 MG TABLET PO SCH (09:00)
[2023-03-18 20:03] VITALS: BP 104/69; PULSE 85; RESP 18; TEMP 97.8; O2SAT 95
[2023-03-18 20:50] VITALS: RESP 18
[2023-03-18 21:53] VITALS: RESP 17
[2023-03-19] MEDS: LEVOTHYROXINE SODIUM 125 MCG TABLET PO SCH (06:41)
[2023-03-19 08:26] VITALS: BP 110/59; PULSE 78; RESP 18; TEMP 98.4; O2SAT 96
[2023-03-19 20:15] VITALS: BP 115/71; PULSE 76; RESP 17; TEMP 98
[2023-03-20 07:10] VITALS: RESP 17
[2023-03-20 14:53] VITALS: RESP 18
[2023-03-20 15:44] VITALS: BP 125/79; PULSE 85; RESP 18; TEMP 98.3; O2SAT 98
[2023-03-20 16:46] VITALS: RESP 17
[2023-03-20 23:34] VITALS: BP 110/60; PULSE 83; RESP 18; TEMP 98; O2SAT 98
[2023-03-21 10:32] VITALS: BP 132/79; PULSE 96; RESP 16; TEMP 97.7; O2SAT 95
[2023-03-21 20:25] VITALS: BP 103/60; PULSE 76; RESP 18; TEMP 98.3; O2SAT 97
[2023-03-22 08:00] VITALS: BP 110/74; PULSE 74; RESP 18; TEMP 98.4; O2SAT 98
[2023-03-22 08:04] LABS: CHOL/HDL RATIO 3.9 (3.9-5.7); CREATININE 1.2 mg/dL (0.60-1.30)
[2023-03-22 20:50] VITALS: BP 127/70; PULSE 92; RESP 18; TEMP 98; O2SAT 100
[2023-03-23 10:31] VITALS: BP 146/87; PULSE 96; RESP 18; TEMP 97.7; O2SAT 97
[2023-03-24 06:49] VITALS: RESP 16
[2023-03-24 08:13] VITALS: BP 106/71; PULSE 97; RESP 17; TEMP 97.3; O2SAT 96
[2023-03-24 20:02] VITALS: BP 102/56; PULSE 76; RESP 20; TEMP 97.9; O2SAT 96
[2023-03-25 08:20] VITALS: BP 110/66; PULSE 84; RESP 18; TEMP 97.3; O2SAT 96
[2023-03-25 11:10] VITALS: PULSE 88; RESP 18
[2023-03-25 12:10] VITALS: RESP 18
[2023-03-25 20:03] VITALS: BP 108/68; PULSE 89; RESP 17; TEMP 97.8
[2023-03-25 20:17] VITALS: RESP 18
[2023-03-25 21:17] VITALS: RESP 17
[2023-03-26 03:30] VITALS: BP 105/65; PULSE 91; RESP 18; TEMP 97.2; O2SAT 97
[2023-03-26 08:08] VITALS: BP 109/66; PULSE 76; RESP 16; TEMP 98.4; O2SAT 96
[2023-03-26 20:12] VITALS: BP 109/60; PULSE 90; RESP 18; TEMP 98; O2SAT 98
[2023-03-27 08:36] VITALS: BP 123/70; PULSE 102; RESP 18; TEMP 97.7; O2SAT 99
[2023-03-27 20:00] VITALS: BP 106/72; PULSE 96; RESP 18; TEMP 98.1; O2SAT 96
[2023-03-28] MEDS: ChlorproMAZINE HCL 50 MG TABLET PO ONE ×2 (10:19→14:28)
[2023-03-28] MEDS: ChlorproMAZINE HCL 100 MG TABLET PO SCH (16:35)
[2023-03-28 20:05] VITALS: BP 113/61; PULSE 82; RESP 18; TEMP 97.3; O2SAT 95
[2023-03-29 21:28] VITALS: BP 111/56; PULSE 81; RESP 18; TEMP 97.8; O2SAT 96
[2023-03-30 04:58] VITALS: BP 110/73; PULSE 95; RESP 18
[2023-03-30 08:02] VITALS: BP 121/84; PULSE 102; RESP 18; TEMP 98.2; O2SAT 98
[2023-03-30 21:06] VITALS: BP 101/57; PULSE 77; RESP 18; TEMP 97.8; O2SAT 97
[2023-03-31 09:17] VITALS: BP 112/65; PULSE 85; RESP 17; TEMP 97.8; O2SAT 96
[2023-03-31] MEDS: MAGNESIUM HYDROXIDE SUSPENSION 30 ML UDCUP PO PRN (09:54)
[2023-03-31 20:12] VITALS: BP 122/72; PULSE 73; RESP 18; TEMP 97.6; O2SAT 97
[2023-03-31] MEDS: ZOLPIDEM TARTRATE 10 MG TABLET PO PRN (20:52)
[2023-04-01] MEDS: LORazepam 1 MG TABLET PO PRN (00:33)
[2023-04-01 08:45] VITALS: BP 119/65; PULSE 93; RESP 18; TEMP 98.2; O2SAT 97
[2023-04-01 21:08] VITALS: BP 115/74; PULSE 90; RESP 18; TEMP 97.9; O2SAT 97
[2023-04-01 21:10] VITALS: BP 100/64; PULSE 90; RESP 17; TEMP 97.9; O2SAT 98
[2023-04-02 08:29] VITALS: BP 118/73; PULSE 88; RESP 17; TEMP 97.6; O2SAT 99
[2023-04-02 16:20] VITALS: BP 108/78; PULSE 84; RESP 17; TEMP 97.7; O2SAT 98
[2023-04-02] MEDS: ATORVASTATIN CALCIUM 20 MG TABLET PO SCH (20:46)
[2023-04-02 23:02] VITALS: BP 101/61; PULSE 78; RESP 16; TEMP 98; O2SAT 96
[2023-04-03 14:28] VITALS: BP 101/69; PULSE 69; RESP 18; TEMP 97.9; O2SAT 96
[2023-04-03 20:00] VITALS: BP 107/60; PULSE 76; RESP 19; TEMP 98; O2SAT 97
[2023-04-04 09:35] VITALS: BP 121/67; PULSE 102; RESP 18; TEMP 97.8; O2SAT 95
[2023-04-04 17:20] VITALS: RESP 18
[2023-04-04 18:20] VITALS: RESP 18
[2023-04-04 21:19] VITALS: BP 124/75; PULSE 82; RESP 18; TEMP 97.6; O2SAT 95
[2023-04-05 08:57] VITALS: BP 113/69; PULSE 84; RESP 19; TEMP 98.6; O2SAT 96
[2023-04-05 20:52] VITALS: BP 110/63; PULSE 71; RESP 18; TEMP 98.1; O2SAT 97
[2023-04-06 01:23] VITALS: RESP 18
[2023-04-06 02:28] VITALS: RESP 18
[2023-04-06 08:23] VITALS: BP 114/62; PULSE 73; RESP 19; TEMP 97.9; O2SAT 95
[2023-04-06 13:58] VITALS: RESP 18
[2023-04-06 14:55] VITALS: RESP 18
[2023-04-06 20:41] VITALS: BP 124/63; PULSE 79; RESP 18; TEMP 97.8
[2023-04-07 08:06] VITALS: BP 120/70; PULSE 81; RESP 18; TEMP 97.9; O2SAT 97
[2023-04-07 21:38] VITALS: BP 113/66; PULSE 74; RESP 16; TEMP 97.4; O2SAT 97
[2023-04-08 08:32] VITALS: BP 116/69; PULSE 84; RESP 16; TEMP 97.6; O2SAT 97
[2023-04-08 20:21] VITALS: BP 118/80; PULSE 78; RESP 17; TEMP 98.3; O2SAT 96
[2023-04-09 10:00] VITALS: BP 112/78; PULSE 78; RESP 18; TEMP 98.2; O2SAT 97
[2023-04-09 20:04] VITALS: BP 124/60; PULSE 82; RESP 18; TEMP 97.5; O2SAT 98
[2023-04-10 06:39] VITALS: BP 114/77; PULSE 83; RESP 17; TEMP 97.7
[2023-04-10 08:15] VITALS: RESP 18
[2023-04-10 21:21] VITALS: BP 127/81; PULSE 87; RESP 18
[2023-04-11 01:41] VITALS: BP 123/90; PULSE 93; RESP 18; TEMP 97.5; O2SAT 98
[2023-04-11 08:03] VITALS: BP 118/71; PULSE 87; RESP 17; TEMP 97.3; O2SAT 95
[2023-04-11 20:00] VITALS: BP 110/60; PULSE 92; RESP 18; TEMP 97.8; O2SAT 96
[2023-04-12 08:06] VITALS: BP 130/80; PULSE 81; RESP 18; TEMP 97.9; O2SAT 96
[2023-04-12 20:01] VITALS: BP 104/60; PULSE 73; RESP 16; TEMP 98.1; O2SAT 96
[2023-04-13 08:13] VITALS: BP 124/68; PULSE 85; RESP 18; TEMP 97.4; O2SAT 95
[2023-04-13 20:42] VITALS: BP 121/73; PULSE 82; RESP 18; TEMP 97.8
[2023-04-14 09:29] VITALS: BP 115/64; PULSE 85; RESP 17; TEMP 98.2; O2SAT 97
[2023-04-14 20:06] VITALS: BP 107/61; PULSE 74; RESP 17; TEMP 98.5; O2SAT 95
[2023-04-15 06:40] VITALS: BP 109/74; PULSE 71; RESP 17; TEMP 97.8
[2023-04-15 08:29] VITALS: BP 129/78; PULSE 81; RESP 16; TEMP 97.4; O2SAT 95
[2023-04-15 20:25] VITALS: BP 110/62; PULSE 69; RESP 17; TEMP 98.2; O2SAT 98
[2023-04-15 21:25] VITALS: RESP 18
[2023-04-15 22:30] VITALS: RESP 18
[2023-04-16 08:16] VITALS: BP 117/62; PULSE 89; RESP 17; TEMP 98.6; O2SAT 97
[2023-04-16 14:19] VITALS: RESP 17
[2023-04-16 15:19] VITALS: RESP 16
[2023-04-16 20:10] VITALS: BP 140/75; PULSE 71; RESP 18; TEMP 98.2; O2SAT 97
[2023-04-17 06:15] VITALS: BP 132/74; PULSE 77; RESP 18; TEMP 97.8
[2023-04-17 08:01] VITALS: BP 125/68; PULSE 80; RESP 16; TEMP 97.8; O2SAT 95
[2023-04-17 12:16] VITALS: RESP 17
[2023-04-17] MEDS: ChlorproMAZINE HCL 50 MG TABLET PO SCH (12:16)
[2023-04-17 13:16] VITALS: RESP 16
[2023-04-17 20:08] VITALS: BP 101/67; PULSE 70; RESP 16; TEMP 97.8; O2SAT 97
[2023-04-17] MEDS: ChlorproMAZINE HCL 100 MG TABLET PO SCH (20:23)
[2023-04-18 06:30] VITALS: BP 109/66; PULSE 77; RESP 17; TEMP 97.7
[2023-04-18 08:35] VITALS: BP 128/66; PULSE 86; RESP 16; TEMP 96.9; O2SAT 96
[2023-04-18 20:37] VITALS: BP 119/70; RESP 16; TEMP 97.4; O2SAT 97
[2023-04-19 03:54] VITALS: BP 116/64; PULSE 77; RESP 18; TEMP 98.3; O2SAT 95
[2023-04-19 08:19] VITALS: BP 107/67; PULSE 86; RESP 17; TEMP 97.6; O2SAT 96
[2023-04-19 12:24] VITALS: RESP 16; O2SAT 96
[2023-04-19 13:24] VITALS: RESP 16; O2SAT 96
[2023-04-19 20:19] VITALS: BP 100/62; PULSE 78; RESP 18; TEMP 98.2; O2SAT 96
[2023-04-20 08:04] VITALS: RESP 17; O2SAT 96
[2023-04-20 08:06] VITALS: BP 124/69; PULSE 77; RESP 17; TEMP 97.9; O2SAT 96
[2023-04-20 09:04] VITALS: RESP 16; O2SAT 96
[2023-04-20 11:34] VITALS: RESP 17
[2023-04-20 12:34] VITALS: RESP 16; O2SAT 96
[2023-04-20] MEDS: NICOTINE 21 MG/24 HOUR PATCH TD ONE (19:21)
[2023-04-20 20:04] VITALS: BP 109/55; PULSE 78; RESP 20; TEMP 97.8; O2SAT 98
[2023-04-21 06:56] VITALS: BP 110/68; PULSE 77; RESP 17; TEMP 97.8
[2023-04-21 08:22] VITALS: BP 110/70; PULSE 80; RESP 20; TEMP 97.8; O2SAT 98
[2023-04-21] MEDS: NICOTINE 21 MG/24 HOUR PATCH TD SCH (08:57)
[2023-04-21 21:14] VITALS: BP 118/76; PULSE 81; RESP 19; TEMP 97
[2023-04-21] MEDS: ZOLPIDEM TARTRATE 5 MG TABLET PO PRN (23:38)
[2023-04-22 06:38] VITALS: BP 114/74; PULSE 77; RESP 17; TEMP 97.9
[2023-04-22 08:06] VITALS: BP 140/80; PULSE 96; RESP 18; TEMP 98.5; O2SAT 98
[2023-04-22 16:20] VITALS: BP 126/77; PULSE 88; RESP 17; TEMP 97.8
[2023-04-22 20:07] VITALS: BP 136/78; PULSE 90; RESP 18; TEMP 98; O2SAT 98
[2023-04-22 21:50] VITALS: RESP 18
[2023-04-23 06:15] VITALS: RESP 18
[2023-04-23] MEDS: TUBERCULIN, PURIFIED PROTEIN DERIVATIVE 5 TU/0.1 ML SYRINGE ID ONE (07:10)
[2023-04-23 09:39] VITALS: RESP 17
[2023-04-23 10:39] VITALS: RESP 18
[2023-04-23 22:26] VITALS: BP 127/76; PULSE 94; RESP 17; TEMP 97.6
[2023-04-24 00:50] VITALS: BP 117/70; PULSE 98; RESP 18; TEMP 97.7
[2023-04-24 08:39] VITALS: BP 116/75; PULSE 90; RESP 17; TEMP 97.6; O2SAT 100
[2023-04-24 20:00] VITALS: BP 105/68; PULSE 80; RESP 16; TEMP 98.4; O2SAT 97
[2023-04-25 08:21] VITALS: BP 113/60; PULSE 85; RESP 20; TEMP 98; O2SAT 98
[2023-04-25 20:59] VITALS: BP 100/60; PULSE 79; RESP 18; TEMP 98.2; O2SAT 98
[2023-04-26 08:04] VITALS: BP 127/67; PULSE 83; RESP 16; TEMP 97.8; O2SAT 98
[2023-04-26 20:01] VITALS: BP 111/60; PULSE 71; RESP 16; TEMP 97.8; O2SAT 96
[2023-04-27 08:37] VITALS: BP 118/70; PULSE 79; RESP 16; TEMP 97.8; O2SAT 96
[2023-04-27 20:44] VITALS: BP 122/63; PULSE 76; RESP 16; TEMP 98.4; O2SAT 98
[2023-04-28 08:42] VITALS: BP 140/74; PULSE 79; RESP 17; TEMP 97.6; O2SAT 96
[2023-04-28 20:11] VITALS: BP 118/64; PULSE 81; RESP 18; TEMP 97.3; O2SAT 98
[2023-04-29 06:01] VITALS: BP 115/71; PULSE 82; RESP 18; TEMP 97.8
[2023-04-29 08:19] VITALS: BP 112/78; PULSE 113; RESP 18; TEMP 96.9; O2SAT 96
[2023-04-29 23:27] VITALS: BP 125/84; PULSE 77; RESP 17; TEMP 97.6
[2023-04-30] VITALS (8 sets, daily range): BP systolic 112–114; BP diastolic 60–73; PULSE 74–86; RESP 16–17; TEMP 97.7–98.8; O2SAT 96–98
[2023-05-01 08:50] VITALS: BP 111/68; PULSE 88; RESP 20; TEMP 98.1
[2023-05-01 09:55] VITALS: RESP 20; O2SAT 99
[2023-05-01 15:04] VITALS: RESP 20
[2023-05-01 20:10] VITALS: BP 115/77; PULSE 76; RESP 18; TEMP 98
[2023-05-02 06:17] VITALS: BP 108/68; PULSE 84; RESP 18; TEMP 97.8
[2023-05-02 08:43] VITALS: BP 148/78; PULSE 80; RESP 18; TEMP 98.6; O2SAT 97
[2023-05-02 20:05] VITALS: BP 110/65; PULSE 68; RESP 18; TEMP 98.5; O2SAT 96
[2023-05-03 08:03] VITALS: BP 103/65; PULSE 80; RESP 16; TEMP 97.2; O2SAT 96
[2023-05-03 09:36] VITALS: BP 113/62; PULSE 83; RESP 16
[2023-05-03] MEDS: DOCUSATE SODIUM 100 MG CAPSULE PO PRN (13:52)
[2023-05-03 17:32] VITALS: BP 119/67; PULSE 79; RESP 18; TEMP 97.5
[2023-05-03 18:23] VITALS: RESP 18
[2023-05-03 20:14] VITALS: BP 124/78; PULSE 71; RESP 18; TEMP 97.3
[2023-05-04 14:36] VITALS: BP 103/66; PULSE 77; RESP 17; TEMP 97.6
[2023-05-04 19:59] VITALS: BP 115/63; PULSE 77; RESP 19; TEMP 98.1; O2SAT 95
[2023-05-04 21:12] VITALS: BP 115/63; PULSE 77; RESP 19; TEMP 98.1; O2SAT 95
[2023-05-05 08:48] VITALS: BP 128/76; PULSE 85; RESP 18; TEMP 97.6; O2SAT 95
[2023-05-05 09:09] VITALS: RESP 18
[2023-05-05 10:11] VITALS: RESP 18
[2023-05-05 20:00] VITALS: BP 119/65; PULSE 77; RESP 19; TEMP 98.4
[2023-05-06 06:01] VITALS: BP 122/63; PULSE 79; RESP 18; TEMP 98
[2023-05-06 20:29] VITALS: BP 103/68; PULSE 79; RESP 18; TEMP 97.7
[2023-05-07 17:33] VITALS: BP 136/71; PULSE 86; RESP 18; TEMP 97
[2023-05-07 20:59] VITALS: BP 136/82; PULSE 86; RESP 18; TEMP 97; O2SAT 99
[2023-05-08 09:00] VITALS: BP 120/60; PULSE 90; RESP 16; TEMP 97.8; O2SAT 97
[2023-05-08 22:53] VITALS: BP 126/80; PULSE 94; RESP 17; TEMP 97.3; O2SAT 97
[2023-05-09 09:33] VITALS: BP 118/56; PULSE 74; RESP 18; TEMP 98; O2SAT 98
[2023-05-09 10:00] VITALS: BP 116/68; PULSE 76; RESP 16; O2SAT 98
[2023-05-09 20:00] VITALS: BP 96/60; PULSE 74; RESP 16; TEMP 97.8; O2SAT 96
[2023-05-10] MEDS: ZOLPIDEM TARTRATE 10 MG TABLET PO PRN (02:59)
[2023-05-10 08:19] VITALS: BP 127/72; PULSE 88; RESP 18; TEMP 97.3; O2SAT 98
[2023-05-10 20:00] VITALS: BP 127/71; PULSE 79; RESP 17; TEMP 98; O2SAT 96
[2023-05-11 08:00] VITALS: BP 111/67; PULSE 89; RESP 18; TEMP 97.7; O2SAT 97
[2023-05-11 20:30] VITALS: BP 132/65; PULSE 82; RESP 17; TEMP 97.9; O2SAT 95
[2023-05-12 10:31] VITALS: BP 101/63; PULSE 84; RESP 17; TEMP 97.4; O2SAT 96
[2023-05-12 20:03] VITALS: BP 109/59; PULSE 74; RESP 20; TEMP 97.5; O2SAT 96
[2023-05-13 08:42] VITALS: BP 138/86; PULSE 94; RESP 16; TEMP 97.2; O2SAT 96
[2023-05-13 20:38] VITALS: BP 110/66; PULSE 99; RESP 18; TEMP 97.7; O2SAT 99
[2023-05-14 10:11] VITALS: BP 110/60; PULSE 76; RESP 18; TEMP 98.2; O2SAT 98
[2023-05-14 20:33] VITALS: BP 109/58; PULSE 75; RESP 17; TEMP 97.3; O2SAT 95
[2023-05-15 06:04] VITALS: BP 114/73; PULSE 78; RESP 17; TEMP 97.8
[2023-05-15 08:24] VITALS: BP 106/62; PULSE 79; RESP 18; TEMP 97.3; O2SAT 95
[2023-05-15 20:05] VITALS: BP 117/84; PULSE 79; RESP 18; TEMP 97.7
[2023-05-16 06:28] VITALS: BP 121/84; PULSE 82; RESP 17; TEMP 97.6
[2023-05-16 12:58] VITALS: BP 121/64; PULSE 78; RESP 18; TEMP 97.1; O2SAT 98
[2023-05-16 20:09] VITALS: BP 129/74; PULSE 82; RESP 18; TEMP 98.1; O2SAT 95
[2023-05-17 09:15] VITALS: BP 123/78; PULSE 74; RESP 17; TEMP 97.4; O2SAT 96
[2023-05-17 21:31] VITALS: BP 133/73; PULSE 84; RESP 18; TEMP 97.4; O2SAT 96
[2023-05-18 15:25] VITALS: BP 110/70; PULSE 70; RESP 18; TEMP 97.3; O2SAT 96
[2023-05-18 20:03] VITALS: BP 128/62; PULSE 81; RESP 18; TEMP 97.6; O2SAT 95
[2023-05-19 08:45] VITALS: BP 117/45; PULSE 80; RESP 18; TEMP 97.5; O2SAT 97
[2023-05-19 09:00] VITALS: BP 117/61; PULSE 80; RESP 18; TEMP 97.5; O2SAT 97
[2023-05-19 20:17] VITALS: BP 121/75; PULSE 71; RESP 18; TEMP 98; O2SAT 96
[2023-05-20 09:53] VITALS: BP 108/70; PULSE 85; RESP 18; TEMP 97.6; O2SAT 99
[2023-05-20 20:08] VITALS: BP 117/74; PULSE 76; RESP 18; TEMP 98.3; O2SAT 96
[2023-05-20 22:05] VITALS: RESP 18
[2023-05-21 09:06] VITALS: BP 106/60; PULSE 87; RESP 16; TEMP 98.1; O2SAT 94
[2023-05-21 12:15] VITALS: RESP 16; O2SAT 95
[2023-05-21 13:22] VITALS: RESP 16; O2SAT 95
[2023-05-21 20:37] VITALS: BP 125/71; PULSE 85; RESP 18; TEMP 97.7; O2SAT 95
[2023-05-22 08:08] VITALS: BP 129/62; PULSE 86; RESP 16; TEMP 97.7; O2SAT 96
[2023-05-22 14:32] VITALS: RESP 17
[2023-05-22 15:32] VITALS: RESP 16
[2023-05-22 21:12] VITALS: BP 147/93; PULSE 87; RESP 18; TEMP 97.3; O2SAT 95
[2023-05-23 08:06] VITALS: BP 123/63; PULSE 76; RESP 18; TEMP 98; O2SAT 95
[2023-05-23 10:32] VITALS: RESP 17
[2023-05-23 11:32] VITALS: RESP 16
[2023-05-23 20:15] VITALS: RESP 17; TEMP 98; O2SAT 96
[2023-05-24 03:17] VITALS: BP 104/68; PULSE 83; RESP 16; TEMP 97.2; O2SAT 98
[2023-05-24 09:37] VITALS: BP 146/95; PULSE 88; RESP 17; TEMP 97.1; O2SAT 98
[2023-05-24 13:09] VITALS: RESP 18
[2023-05-24 14:20] VITALS: RESP 18
[2023-05-24 20:04] VITALS: BP 124/76; PULSE 76; RESP 18; TEMP 97.8; O2SAT 96
[2023-05-25 08:54] VITALS: BP 112/62; PULSE 81; RESP 17; TEMP 97.8; O2SAT 99
[2023-05-25 18:06] VITALS: BP 118/69; PULSE 83; RESP 17; TEMP 97.7
[2023-05-25 20:13] VITALS: BP 113/63; PULSE 74; RESP 18; TEMP 97.2; O2SAT 96
[2023-05-26 06:00] VITALS: BP 132/77; PULSE 77; RESP 17; TEMP 97.8
[2023-05-26 08:00] VITALS: BP 102/58; PULSE 84; RESP 18; TEMP 97.3; O2SAT 98
[2023-05-26 15:00] VITALS: BP 111/71; RESP 18; TEMP 97.4; O2SAT 96
[2023-05-26] MEDS: FluPHENAZine HCL 10 MG TABLET PO SCH (20:35)
[2023-05-26 20:51] VITALS: BP 111/71; PULSE 76; RESP 18; TEMP 97.4; O2SAT 96
[2023-05-27 06:01] VITALS: BP 125/77; PULSE 82; RESP 18; TEMP 97.8
[2023-05-27 08:01] VITALS: BP 122/77; PULSE 78; RESP 16; TEMP 98.2; O2SAT 98
[2023-05-27 11:32] VITALS: RESP 16; O2SAT 98
[2023-05-27 12:32] VITALS: RESP 16; O2SAT 98
[2023-05-27 20:20] VITALS: BP 134/76; PULSE 78; RESP 18; TEMP 97.9; O2SAT 96
[2023-05-27 21:20] VITALS: RESP 18
[2023-05-28] VITALS (9 sets, daily range): BP systolic 110–150; BP diastolic 59–84; PULSE 72–90; RESP 16–18; TEMP 97.2–98.4; O2SAT 96–99
[2023-05-29 05:43] VITALS: BP 144/87; PULSE 80; RESP 18; TEMP 98.3; O2SAT 96
[2023-05-29 08:40] VITALS: BP 138/90; PULSE 90; RESP 16; TEMP 98.4; O2SAT 98
[2023-05-29 20:01] VITALS: BP 113/66; PULSE 76; RESP 16; TEMP 98; O2SAT 96
[2023-05-29 23:50] VITALS: BP 113/66; RESP 18; O2SAT 96
[2023-05-30 00:02] VITALS: BP 136/82; PULSE 72; RESP 18; TEMP 98.4; O2SAT 97
[2023-05-30 08:03] VITALS: BP 130/80; PULSE 79; RESP 18; TEMP 98.4; O2SAT 97
[2023-05-30 15:25] VITALS: BP 134/76; PULSE 84; RESP 18; TEMP 97.8; O2SAT 97
[2023-05-30 16:27] VITALS: RESP 18
[2023-05-30] MEDS: ChlorproMAZINE HCL 50 MG TABLET PO SCH (16:34)
[2023-05-30 20:08] VITALS: BP 108/68; PULSE 79; RESP 18; TEMP 97.2; O2SAT 96
[2023-05-30] MEDS: ChlorproMAZINE HCL 100 MG TABLET PO SCH (20:32)
[2023-05-31 01:32] VITALS: BP 119/77; PULSE 92; RESP 18; TEMP 97.6; O2SAT 94
[2023-05-31 08:22] VITALS: BP 90/60; PULSE 86; RESP 18; TEMP 97.3; O2SAT 95
[2023-05-31 09:22] VITALS: BP 143/68; PULSE 79; RESP 15; RESP 18
[2023-05-31 10:03] VITALS: BP 131/84; PULSE 84; RESP 18
[2023-05-31 11:03] VITALS: RESP 18
[2023-05-31 20:48] VITALS: BP 129/86; PULSE 95; RESP 16; TEMP 97.6; O2SAT 95
[2023-06-01 01:46] VITALS: BP 133/88; RESP 18; TEMP 96.9; O2SAT 94
[2023-06-01 08:32] VITALS: BP 97/60; PULSE 70; RESP 16; TEMP 97.7; O2SAT 97
[2023-06-01 12:13] VITALS: BP 102/68; PULSE 72; RESP 16; TEMP 97.6; O2SAT 97
[2023-06-01 13:13] VITALS: BP 104/72; PULSE 76; RESP 16; TEMP 98.1; O2SAT 98
[2023-06-01 20:08] VITALS: BP 111/58; PULSE 95; RESP 20; TEMP 97.9; O2SAT 94
[2023-06-02 08:29] VITALS: BP 118/64; PULSE 96; RESP 20; TEMP 97.8; O2SAT 96
[2023-06-02 11:04] VITALS: RESP 20
[2023-06-02 12:04] VITALS: RESP 18
[2023-06-02 21:37] VITALS: BP 123/67; PULSE 80; RESP 18; TEMP 97.4; O2SAT 97
[2023-06-03 08:26] VITALS: BP 120/67; PULSE 86; RESP 18; TEMP 97.5; O2SAT 97
[2023-06-03 20:00] VITALS: BP 115/72; PULSE 76; RESP 18; TEMP 97.6; O2SAT 96
[2023-06-04 08:12] VITALS: BP 118/67; PULSE 89; RESP 18; TEMP 97.7; O2SAT 97
[2023-06-04 19:59] VITALS: BP 120/76; PULSE 78; RESP 20; TEMP 97.7; O2SAT 98
[2023-06-04 20:30] VITALS: BP 128/77; PULSE 81; RESP 18; TEMP 97.7
[2023-06-05] VITALS (7 sets, daily range): BP systolic 102–124; BP diastolic 64–81; PULSE 77–81; RESP 16–19; TEMP 97.2–97.9; O2SAT 96
[2023-06-06 08:12] VITALS: BP 129/76; PULSE 78; RESP 18; TEMP 97.5; O2SAT 97
[2023-06-06 21:00] VITALS: BP 136/73; PULSE 76; RESP 16; TEMP 97.8; O2SAT 98
[2023-06-07 08:31] VITALS: BP 112/68; PULSE 78; RESP 18; TEMP 97.7; O2SAT 95
[2023-06-07 21:20] VITALS: BP 101/60; PULSE 77; RESP 17; TEMP 97.4; O2SAT 95
[2023-06-08 08:00] VITALS: BP 116/64; PULSE 88; RESP 16; TEMP 97.8; O2SAT 95
[2023-06-09 00:35] VITALS: BP 127/83; PULSE 94; RESP 18; TEMP 97.4; O2SAT 98
[2023-06-09 08:17] VITALS: BP 135/80; PULSE 92; RESP 19; TEMP 97.9; O2SAT 95
[2023-06-09 10:20] VITALS: RESP 19
[2023-06-09 11:20] VITALS: RESP 18
[2023-06-09 19:57] VITALS: BP 121/64; PULSE 67; RESP 18; TEMP 96.7; O2SAT 96
[2023-06-09 22:00] VITALS: BP 121/64; PULSE 67; RESP 18; TEMP 96.7; O2SAT 96
[2023-06-10 13:12] VITALS: BP 116/72; PULSE 74; RESP 16; TEMP 98.2; O2SAT 94
[2023-06-10 21:32] VITALS: BP 105/66; PULSE 81; RESP 18; TEMP 98; O2SAT 96
[2023-06-11 06:05] VITALS: BP 115/68; PULSE 83; RESP 18; TEMP 97.9
[2023-06-11 11:04] VITALS: BP 116/82; PULSE 78; RESP 18; TEMP 98.1; O2SAT 96
[2023-06-12 00:39] VITALS: BP 103/61; PULSE 78; RESP 17; TEMP 97.9
[2023-06-12 06:41] VITALS: BP 110/71; PULSE 81; RESP 17; TEMP 97.9
[2023-06-12 09:00] VITALS: BP 121/76; PULSE 108; RESP 18; TEMP 97.7
[2023-06-12 10:32] VITALS: BP 107/76; PULSE 82; RESP 18; TEMP 97.8
[2023-06-12 21:25] VITALS: BP 118/72; PULSE 64; RESP 19; TEMP 97.9; O2SAT 97
[2023-06-13 06:54] VITALS: BP 124/81; PULSE 84; RESP 18; TEMP 97.8
[2023-06-13 08:00] VITALS: BP 122/77; PULSE 91; RESP 16; TEMP 98.2; O2SAT 95
[2023-06-13 20:06] VITALS: BP 131/85; PULSE 97; RESP 18; TEMP 97.9; O2SAT 97
[2023-06-14 08:50] VITALS: RESP 17; O2SAT 99
[2023-06-14 20:11] VITALS: BP 102/60; PULSE 70; RESP 18; TEMP 96.5; O2SAT 95
[2023-06-14 20:17] VITALS: RESP 18
[2023-06-14 21:18] VITALS: RESP 18
[2023-06-15 01:35] VITALS: BP 114/62; TEMP 97.5; O2SAT 96
[2023-06-15 08:20] VITALS: BP 101/57; PULSE 80; RESP 18; TEMP 97.2; O2SAT 97
[2023-06-15 08:27] VITALS: BP 136/81; PULSE 103; RESP 18; O2SAT 98
[2023-06-15 16:48] VITALS: BP 118/69; PULSE 84; RESP 18
[2023-06-15 17:50] VITALS: RESP 18
[2023-06-15 20:22] VITALS: BP 142/78; PULSE 85; RESP 18; TEMP 98.4; O2SAT 94
[2023-06-16 08:13] VITALS: BP 140/70; PULSE 90; RESP 17; TEMP 97.9; O2SAT 100
[2023-06-16 20:11] VITALS: BP 101/60; PULSE 65; RESP 18; TEMP 97.8; O2SAT 94
[2023-06-17 06:03] VITALS: BP 110/74; PULSE 82; RESP 17; TEMP 97.8
[2023-06-17 10:33] VITALS: BP 120/59; PULSE 78; RESP 16; TEMP 97.2; O2SAT 98
[2023-06-17 20:02] VITALS: BP 138/86; PULSE 81; RESP 18; TEMP 97.6; O2SAT 94
[2023-06-18 06:01] VITALS: BP 122/81; PULSE 88; RESP 18; TEMP 97.8
[2023-06-18 09:54] VITALS: BP 120/62; PULSE 82; RESP 18; TEMP 97.4; O2SAT 97
[2023-06-18 15:39] VITALS: BP 120/62; PULSE 82; RESP 16; TEMP 98; O2SAT 98
[2023-06-18 21:09] VITALS: BP 108/61; PULSE 76; RESP 18; TEMP 97.6; O2SAT 95
[2023-06-19 06:01] VITALS: BP 114/75; PULSE 81; RESP 18; TEMP 97.8
[2023-06-19 08:30] VITALS: BP 121/73; PULSE 89; RESP 18; TEMP 97.9; O2SAT 97
[2023-06-19 20:20] VITALS: BP 123/59; PULSE 83; RESP 18; TEMP 97.5; O2SAT 95
[2023-06-20 08:30] VITALS: BP 102/59; PULSE 81; RESP 18; TEMP 98; O2SAT 95
[2023-06-20 19:05] VITALS: BP 123/75; PULSE 100; RESP 18; TEMP 98; O2SAT 99
[2023-06-21 10:14] VITALS: BP 142/83; PULSE 97; RESP 18; TEMP 97.5; O2SAT 95
[2023-06-21 20:59] VITALS: BP 134/75; PULSE 95; RESP 18; TEMP 97.6; O2SAT 97
[2023-06-21 23:55] VITALS: BP 134/94; PULSE 94; RESP 18; TEMP 97.2; O2SAT 96
[2023-06-21 23:57] VITALS: BP 149/68; PULSE 99; RESP 18; TEMP 97.5; O2SAT 99
[2023-06-22] VITALS (12 sets, daily range): BP systolic 105–134; BP diastolic 55–87; PULSE 70–98; RESP 16–18; TEMP 97–98.2; O2SAT 95–100
[2023-06-23 08:00] VITALS: BP 116/68; PULSE 67; RESP 16; TEMP 97.8; O2SAT 94
[2023-06-23 18:55] VITALS: BP_SYST 117; BP_SYST 122; BP_DIAS 68; BP_DIAS 71; PULSE 78; RESP 18
[2023-06-23 19:56] VITALS: RESP 18
[2023-06-23 20:05] VITALS: BP 134/68; PULSE 92; RESP 16; TEMP 98.6; O2SAT 98
[2023-06-23 21:08] VITALS: BP 124/66; PULSE 92; RESP 16; TEMP 98; O2SAT 98
[2023-06-24 06:03] VITALS: BP 131/78; PULSE 87; RESP 17; TEMP 97.7
[2023-06-24 08:00] VITALS: BP 111/71; PULSE 84; RESP 18; TEMP 98.1; O2SAT 97
[2023-06-24 11:39] VITALS: BP 111/71; PULSE 80; RESP 18; TEMP 97.5; O2SAT 95
[2023-06-24 18:54] VITALS: BP 104/52; RESP 18; O2SAT 95
[2023-06-24 20:49] VITALS: BP 128/76; PULSE 87; RESP 18
[2023-06-24 21:26] VITALS: BP 128/76; PULSE 97; RESP 18
[2023-06-25 06:15] VITALS: BP 121/75; PULSE 83; RESP 17; TEMP 97.7
[2023-06-25 08:19] VITALS: BP 109/64; PULSE 81; RESP 18; TEMP 97.9; O2SAT 95
[2023-06-25 20:20] VITALS: BP 122/61; PULSE 73; TEMP 97.7; O2SAT 94
[2023-06-26 09:19] VITALS: BP 102/60; PULSE 90; RESP 18; TEMP 97.9; O2SAT 94
[2023-06-26 09:34] VITALS: RESP 17
[2023-06-26 10:34] VITALS: RESP 16
[2023-06-27 00:01] VITALS: RESP 16
[2023-06-27 03:02] VITALS: BP 112/62; PULSE 97; RESP 17; TEMP 97.8; O2SAT 95
[2023-06-27 09:40] VITALS: BP 117/69; PULSE 73; RESP 17; TEMP 97.7; O2SAT 95
[2023-06-27 20:42] VITALS: BP 111/66; PULSE 78; RESP 20; TEMP 97.8; O2SAT 96
[2023-06-28 08:04] VITALS: BP 144/86; PULSE 89; RESP 18; TEMP 97.3; O2SAT 95
[2023-06-28 20:40] VITALS: BP 122/82; PULSE 100; RESP 18; TEMP 97.9; O2SAT 96
[2023-06-29 09:20] VITALS: BP 114/63; PULSE 87; RESP 18; TEMP 97.7; O2SAT 95
[2023-06-29 19:58] VITALS: BP 126/74; PULSE 99; RESP 17; TEMP 97; O2SAT 95
[2023-06-29 20:02] VITALS: BP 126/74; PULSE 99; RESP 17; TEMP 97; O2SAT 95
[2023-06-29 20:39] VITALS: RESP 18
[2023-06-29 21:38] VITALS: RESP 18
[2023-06-30 08:00] VITALS: BP 110/60; PULSE 60; RESP 16; TEMP 98.1; O2SAT 98
[2023-06-30 12:42] VITALS: BP 112/74; PULSE 82; RESP 16; TEMP 98; O2SAT 98
[2023-06-30 20:36] VITALS: BP 120/64; PULSE 89; RESP 18; TEMP 97.6; O2SAT 94
[2023-06-30 20:52] VITALS: RESP 18
[2023-06-30 21:54] VITALS: RESP 18
[2023-07-01 10:59] VITALS: BP 107/70; PULSE 109; RESP 18; TEMP 97.8; O2SAT 97
[2023-07-01 23:45] VITALS: BP 110/69; PULSE 96; RESP 18; TEMP 98; O2SAT 98
[2023-07-02 12:38] VITALS: BP 117/64; PULSE 91; RESP 13; TEMP 97.2; O2SAT 95
[2023-07-02 21:53] VITALS: BP 112/68; PULSE 91; RESP 17; TEMP 98.2; O2SAT 96
[2023-07-03 00:26] VITALS: BP 116/68; PULSE 92; RESP 17; TEMP 98; O2SAT 97
[2023-07-03 08:22] VITALS: BP 122/67; PULSE 74; RESP 18; TEMP 98.2; O2SAT 96
[2023-07-03 20:15] VITALS: BP 120/74; PULSE 93; RESP 18; TEMP 97.3; O2SAT 98
[2023-07-03 20:35] LABS: GLUCOMETER DEV NAME(LOC) BV2X.2; GLUCOSE,POINT OF CARE 181 MG/DL (70-110)
[2023-07-04 00:57] VITALS: BP 140/76; PULSE 101; RESP 18; TEMP 97.4; O2SAT 95
[2023-07-04 08:06] VITALS: BP 131/86; PULSE 98; RESP 18; TEMP 97.5; O2SAT 96
[2023-07-04 23:52] VITALS: BP 100/69; PULSE 90; RESP 17; TEMP 97.8; O2SAT 98
[2023-07-05 08:06] VITALS: BP 113/74; PULSE 92; RESP 18; TEMP 97.4; O2SAT 95
[2023-07-05 08:34] VITALS: RESP 17
[2023-07-05 09:34] VITALS: RESP 16
[2023-07-05 20:02] VITALS: BP 112/64; PULSE 78; RESP 18; TEMP 96.8; O2SAT 98
[2023-07-06 14:06] VITALS: BP 124/71; PULSE 77; RESP 18; TEMP 98.2; O2SAT 98
[2023-07-06 20:59] VITALS: BP 123/58; PULSE 69; RESP 16; TEMP 97.4; O2SAT 96
[2023-07-06 22:46] VITALS: BP 112/75; PULSE 101; RESP 18
[2023-07-07 08:14] VITALS: BP 139/75; PULSE 92; RESP 18; TEMP 97.8; O2SAT 97
[2023-07-07 08:16] LABS: BASOPHILS % (AUTO) 0.5 % (0.0-2.0); EOSINOPHILS % (AUTO) 1.4 % (1.0-6.0); HEMATOCRIT 31.8 % (36-46); HEMOGLOBIN 10.8 g/dL (12.0-16.0); LYMPHOCYTES # (AUTO) 1.7 K/uL (1.0-4.8); MEAN CORPUSCULAR HEMOGLOBIN 32.3 pg (26.0-34.0); MEAN CORPUSCULAR HGB CONC 33.9 G/dL (31.0-37.0); MEAN CORPUSCULAR VOLUME 95 fL (80-100); MONOCYTES # (AUTO) 0.6 K/uL (0.1-1.0); MONOCYTES % (AUTO) 13.2 % (2.0-9.0); NEUTROPHILS # (AUTO) 2.3 K/uL (1.8-7.7); NEUTROPHILS % (AUTO) 48.9 % (40.0-70.0); RED BLOOD CELL COUNT(AUTO) 3.34 MIL/uL (4.00-5.20); RED CELL DISTRIBUTION WIDTH 13.7 % (11.5-14.5); WHITE BLOOD COUNT (AUTO) 4.7 K/uL (4.5-11.0)
[2023-07-07 08:31] LABS: HEMOGLOBIN A1C 7.4 % (3.8-5.6)
[2023-07-07 08:41] LABS: ALBUMIN 2.4 g/dL (3.4-5.0); BILIRUBIN,TOTAL 0.2 mg/dL (0.1-1.0); CALCIUM, TOTAL 8.5 mg/dL (8.8-10.5); CHOL/HDL RATIO 4.4 (3.9-5.7); CREATININE 1.49 mg/dL (0.60-1.30); MAGNESIUM 1.5 mg/dL (1.80-2.40); PHOSPHORUS 4.3 mg/dL (2.5-4.9); POTASSIUM 4.9 mmol/L (3.5-5.1); THYROID STIMULATING HORMONE 2.05 uIU/mL (0.36-3.74); TOTAL PROTEIN, SERUM 5.4 g/dL (6.4-8.2)
[2023-07-07 08:50] LABS: PLATELET COUNT (AUTO) 89 K/uL (150-450)
[2023-07-07 20:23] VITALS: BP 114/62; PULSE 90; RESP 18; TEMP 97.7; O2SAT 96
[2023-07-08 06:19] VITALS: BP 127/66; PULSE 88; RESP 18; TEMP 97.9
[2023-07-08 08:07] VITALS: BP 118/76; PULSE 80; RESP 18; TEMP 97.7; O2SAT 96
[2023-07-08 20:45] VITALS: BP 145/76; PULSE 82; RESP 15; TEMP 97; O2SAT 97
[2023-07-09 08:02] VITALS: BP 118/72; PULSE 79; RESP 18; TEMP 96.9; O2SAT 96
[2023-07-09 20:18] VITALS: BP 127/87; PULSE 99; RESP 18; TEMP 97.8; O2SAT 94
[2023-07-10 08:14] VITALS: BP 118/60; PULSE 97; RESP 19; TEMP 97.9; O2SAT 97
[2023-07-10 23:03] VITALS: BP 121/72; PULSE 76; RESP 18; TEMP 97.2; O2SAT 98
[2023-07-11 08:52] VITALS: BP 145/60; PULSE 70; RESP 18; TEMP 98.3; O2SAT 100
[2023-07-11 11:56] LABS: GLUCOMETER DEV NAME(LOC) BV2X.2; GLUCOSE,POINT OF CARE 195 MG/DL (70-110)
[2023-07-11 16:41] LABS: GLUCOMETER DEV NAME(LOC) BV2X.2; GLUCOSE,POINT OF CARE 216 MG/DL (70-110)
[2023-07-11] MEDS: MetFORMIN HCL 500 MG TABLET PO SCH (16:42)
[2023-07-11 20:23] VITALS: BP 99/62; PULSE 75; RESP 17; TEMP 97.4; O2SAT 95
[2023-07-11 21:45] LABS: GLUCOMETER DEV NAME(LOC) BV2S.; GLUCOSE,POINT OF CARE 212 MG/DL (70-110)
[2023-07-11 23:18] VITALS: RESP 17
[2023-07-11 23:31] VITALS: BP 132/82; PULSE 85; RESP 18; TEMP 97; O2SAT 95
[2023-07-12 06:06] LABS: GLUCOMETER DEV NAME(LOC) BV2X.2; GLUCOSE,POINT OF CARE 150 MG/DL (70-110)
[2023-07-12 08:44] VITALS: BP 136/82; PULSE 99; RESP 18; TEMP 97.6; O2SAT 99
[2023-07-12 11:26] LABS: GLUCOMETER DEV NAME(LOC) BV2X.2; GLUCOSE,POINT OF CARE 194 MG/DL (70-110)
[2023-07-12 16:46] LABS: GLUCOMETER DEV NAME(LOC) BV2X.2; GLUCOSE,POINT OF CARE 208 MG/DL (70-110)
[2023-07-12 20:07] VITALS: BP 128/76; PULSE 76; RESP 18; TEMP 97.7; O2SAT 96
[2023-07-12 20:35] LABS: GLUCOMETER DEV NAME(LOC) BV2X.2; GLUCOSE,POINT OF CARE 177 MG/DL (70-110)
[2023-07-13 06:16] LABS: GLUCOMETER DEV NAME(LOC) BV2X.2; GLUCOSE,POINT OF CARE 157 MG/DL (70-110)
[2023-07-13 08:20] VITALS: BP 114/67; PULSE 98; RESP 17; TEMP 97.7; O2SAT 96
[2023-07-13 11:31] LABS: GLUCOMETER DEV NAME(LOC) BV2X.2; GLUCOSE,POINT OF CARE 202 MG/DL (70-110)
[2023-07-13 17:56] LABS: GLUCOMETER DEV NAME(LOC) BV2X.2; GLUCOSE,POINT OF CARE 147 MG/DL (70-110)
[2023-07-13 20:17] VITALS: BP 101/58; PULSE 90; RESP 16; TEMP 97.6; O2SAT 98
[2023-07-13 20:36] LABS: GLUCOMETER DEV NAME(LOC) BV2X.2; GLUCOSE,POINT OF CARE 193 MG/DL (70-110)
[2023-07-14 06:16] LABS: GLUCOMETER DEV NAME(LOC) BV2X.2; GLUCOSE,POINT OF CARE 209 MG/DL (70-110)
[2023-07-14 08:00] VITALS: BP 113/70; PULSE 100; RESP 18; TEMP 97.4; O2SAT 91
[2023-07-14 12:31] LABS: GLUCOMETER DEV NAME(LOC) BV2X.2; GLUCOSE,POINT OF CARE 218 MG/DL (70-110)
[2023-07-14 17:00] LABS: GLUCOMETER DEV NAME(LOC) BV2X.2; GLUCOSE,POINT OF CARE 182 MG/DL (70-110)
[2023-07-14 20:02] VITALS: BP 102/65; PULSE 76; RESP 18; TEMP 97.9; O2SAT 96
[2023-07-15 06:20] LABS: GLUCOMETER DEV NAME(LOC) BV2X.2; GLUCOSE,POINT OF CARE 151 MG/DL (70-110)
[2023-07-15 08:22] VITALS: BP 110/65; PULSE 94; RESP 17; TEMP 97.9; O2SAT 98
[2023-07-15 11:41] LABS: GLUCOMETER DEV NAME(LOC) BV2X.2; GLUCOSE,POINT OF CARE 149 MG/DL (70-110)
[2023-07-15 19:31] LABS: GLUCOMETER DEV NAME(LOC) BV2X.2; GLUCOSE,POINT OF CARE 155 MG/DL (70-110)
[2023-07-15 20:26] LABS: GLUCOMETER DEV NAME(LOC) BV2X.2; GLUCOSE,POINT OF CARE 176 MG/DL (70-110)
[2023-07-15 20:33] VITALS: BP 106/61; PULSE 77; RESP 18; TEMP 98; O2SAT 98
[2023-07-16 06:31] LABS: GLUCOMETER DEV NAME(LOC) BV2X.2; GLUCOSE,POINT OF CARE 125 MG/DL (70-110)
[2023-07-16 08:15] VITALS: BP 128/64; PULSE 92; RESP 18; TEMP 98; O2SAT 98
[2023-07-16 13:40] LABS: GLUCOMETER DEV NAME(LOC) BV2X.2; GLUCOSE,POINT OF CARE 164 MG/DL (70-110)
[2023-07-16 20:20] LABS: GLUCOMETER DEV NAME(LOC) BV2X.2; GLUCOSE,POINT OF CARE 178 MG/DL (70-110)
[2023-07-16 20:35] LABS: GLUCOMETER DEV NAME(LOC) BV2X.2; GLUCOSE,POINT OF CARE 188 MG/DL (70-110)
[2023-07-16 23:37] VITALS: BP 106/62; PULSE 82; RESP 17; TEMP 97.6; O2SAT 96
[2023-07-17 06:25] LABS: GLUCOMETER DEV NAME(LOC) BV2X.2; GLUCOSE,POINT OF CARE 214 MG/DL (70-110)
[2023-07-17 06:30] LABS: GLUCOMETER DEV NAME(LOC) BV2X.2; GLUCOSE,POINT OF CARE 163 MG/DL (70-110)
[2023-07-17 08:32] VITALS: BP 140/80; PULSE 94; RESP 18; TEMP 98.3; O2SAT 96
[2023-07-17 11:30] LABS: GLUCOMETER DEV NAME(LOC) BV2X.2; GLUCOSE,POINT OF CARE 148 MG/DL (70-110)
[2023-07-17 19:51] LABS: GLUCOMETER DEV NAME(LOC) BV2X.2; GLUCOSE,POINT OF CARE 167 MG/DL (70-110)
[2023-07-17 20:01] VITALS: BP 110/68; PULSE 91; RESP 16; TEMP 97.8; O2SAT 96
[2023-07-17 21:01] LABS: GLUCOMETER DEV NAME(LOC) BV2X.2; GLUCOSE,POINT OF CARE 151 MG/DL (70-110)
[2023-07-18 02:43] VITALS: BP 122/60; PULSE 100; RESP 18; TEMP 97.9; O2SAT 95
[2023-07-18 05:55] LABS: GLUCOMETER DEV NAME(LOC) BV2X.2; GLUCOSE,POINT OF CARE 148 MG/DL (70-110)
[2023-07-18 08:20] VITALS: BP 118/72; PULSE 90; RESP 17; TEMP 98; O2SAT 98
[2023-07-18 10:22] VITALS: RESP 17
[2023-07-18 11:22] VITALS: RESP 16
[2023-07-18 11:25] LABS: GLUCOMETER DEV NAME(LOC) BV2X.2; GLUCOSE,POINT OF CARE 175 MG/DL (70-110)
[2023-07-18 20:01] VITALS: BP 122/66; PULSE 88; RESP 16; TEMP 97.8; O2SAT 98
[2023-07-18 20:46] LABS: GLUCOMETER DEV NAME(LOC) BV2X.2; GLUCOSE,POINT OF CARE 156 MG/DL (70-110)
[2023-07-18 20:46] LABS: GLUCOMETER DEV NAME(LOC) BV2X.2; GLUCOSE,POINT OF CARE 162 MG/DL (70-110)
[2023-07-19 06:35] LABS: GLUCOMETER DEV NAME(LOC) BV2X.2; GLUCOSE,POINT OF CARE 133 MG/DL (70-110)
[2023-07-19 08:55] VITALS: BP 120/63; PULSE 87; RESP 16; TEMP 97.8; O2SAT 98
[2023-07-19] MEDS: PredniSONE 10 MG TABLET PO SCH (08:58)
[2023-07-19 09:52] VITALS: BP 100/60; PULSE 76; RESP 18; TEMP 97; O2SAT 98
[2023-07-19 11:35] LABS: GLUCOMETER DEV NAME(LOC) BV2X.2; GLUCOSE,POINT OF CARE 223 MG/DL (70-110)
[2023-07-19 16:31] LABS: GLUCOMETER DEV NAME(LOC) BV2X.2; GLUCOSE,POINT OF CARE 223 MG/DL (70-110)
[2023-07-19 17:13] VITALS: BP 127/76; PULSE 84; RESP 18; TEMP 97.3; O2SAT 100
[2023-07-19 20:36] VITALS: BP 130/63; PULSE 80; RESP 18; TEMP 97.5; O2SAT 98
[2023-07-19 21:06] LABS: GLUCOMETER DEV NAME(LOC) BV2X.2; GLUCOSE,POINT OF CARE 197 MG/DL (70-110)
[2023-07-20 06:31] LABS: GLUCOMETER DEV NAME(LOC) BV2X.2; GLUCOSE,POINT OF CARE 152 MG/DL (70-110)
[2023-07-20 08:30] LABS: BASOPHILS % (AUTO) 0.5 % (0.0-2.0); EOSINOPHILS % (AUTO) 0.8 % (1.0-6.0); HEMATOCRIT 32.1 % (36-46); LYMPHOCYTES % (AUTO) 32.8 % (22.0-44.0); MEAN CORPUSCULAR HEMOGLOBIN 32.3 pg (26.0-34.0); MEAN CORPUSCULAR HGB CONC 34.3 G/dL (31.0-37.0); MEAN CORPUSCULAR VOLUME 94 fL (80-100); MONOCYTES # (AUTO) 0.7 K/uL (0.1-1.0); MONOCYTES % (AUTO) 10.9 % (2.0-9.0); NEUTROPHILS # (AUTO) 3.3 K/uL (1.8-7.7); PLATELET COUNT (AUTO) 117 K/uL (150-450); RED BLOOD CELL COUNT(AUTO) 3.41 MIL/uL (4.00-5.20); RED CELL DISTRIBUTION WIDTH 13.4 % (11.5-14.5)
[2023-07-20 08:40] LABS: HEMOGLOBIN A1C 7.5 % (3.8-5.6)
[2023-07-20 09:01] LABS: ALBUMIN 2.7 g/dL (3.4-5.0); BILIRUBIN,TOTAL 0.3 mg/dL (0.1-1.0); CALCIUM, TOTAL 8.8 mg/dL (8.8-10.5); CHOL/HDL RATIO 2.8 (3.9-5.7); CREATININE 1.28 mg/dL (0.60-1.30); POTASSIUM 4.4 mmol/L (3.5-5.1); THYROID STIMULATING HORMONE 1.52 uIU/mL (0.36-3.74); TOTAL PROTEIN, SERUM 5.9 g/dL (6.4-8.2)
[2023-07-20 11:26] VITALS: BP 110/62; PULSE 84; RESP 16; TEMP 97.9; O2SAT 94
[2023-07-20 11:41] LABS: GLUCOMETER DEV NAME(LOC) BV2X.2; GLUCOSE,POINT OF CARE 154 MG/DL (70-110)
[2023-07-20 16:56] LABS: GLUCOMETER DEV NAME(LOC) BV2S.; GLUCOSE,POINT OF CARE 247 MG/DL (70-110)
[2023-07-20 20:36] VITALS: BP 122/71; PULSE 81; RESP 15; TEMP 97.5; O2SAT 98
[2023-07-21 06:20] LABS: GLUCOMETER DEV NAME(LOC) BV2X.2; GLUCOSE,POINT OF CARE 220 MG/DL (70-110)
[2023-07-21 08:26] VITALS: BP 151/98; PULSE 97; RESP 17; TEMP 97.1; O2SAT 95
[2023-07-21 11:56] LABS: GLUCOMETER DEV NAME(LOC) BV2X.2; GLUCOSE,POINT OF CARE 214 MG/DL (70-110)
[2023-07-21 17:15] LABS: GLUCOMETER DEV NAME(LOC) BV2X.2; GLUCOSE,POINT OF CARE 325 MG/DL (70-110)
[2023-07-21] MEDS ORDERED: GLUCAGON,HUMAN RECOMBINANT 1 MG VIAL IM PRN (19:30)
[2023-07-21 20:01] LABS: GLUCOMETER DEV NAME(LOC) BV2X.2; GLUCOSE,POINT OF CARE 229 MG/DL (70-110)
[2023-07-21] MEDS: INSULIN LISPRO 100 UNITS/ML SQ PRN (20:20)
[2023-07-21 20:23] VITALS: BP 130/66; PULSE 79; RESP 16; TEMP 98.5; O2SAT 96
[2023-07-22 06:16] VITALS: BP 125/78; PULSE 74; RESP 17; TEMP 97.6
[2023-07-22 06:46] LABS: GLUCOMETER DEV NAME(LOC) BV2X.2; GLUCOSE,POINT OF CARE 237 MG/DL (70-110)
[2023-07-22 08:26] VITALS: BP 138/73; PULSE 80; RESP 17; TEMP 98.6; O2SAT 98
[2023-07-22 11:51] LABS: GLUCOMETER DEV NAME(LOC) BV2X.2; GLUCOSE,POINT OF CARE 151 MG/DL (70-110)
[2023-07-22 17:10] LABS: GLUCOMETER DEV NAME(LOC) BV2X.2; GLUCOSE,POINT OF CARE 222 MG/DL (70-110)
[2023-07-22 19:42] VITALS: BP 106/69; PULSE 72; RESP 19; TEMP 97.9; O2SAT 97
[2023-07-22 20:03] VITALS: BP 106/69; PULSE 72; RESP 19; TEMP 97.9; O2SAT 97
[2023-07-22 20:50] LABS: GLUCOMETER DEV NAME(LOC) BV2X.2; GLUCOSE,POINT OF CARE 167 MG/DL (70-110)
[2023-07-23 00:02] VITALS: BP 111/78; PULSE 100; RESP 17; TEMP 97.8; O2SAT 97
[2023-07-23 05:41] VITALS: BP 116/75; PULSE 101; RESP 18; TEMP 97.6; O2SAT 96
[2023-07-23 08:11] VITALS: BP 148/80; PULSE 85; RESP 18; TEMP 97.3; O2SAT 96
[2023-07-23 11:20] LABS: GLUCOMETER DEV NAME(LOC) BV2X.2; GLUCOSE,POINT OF CARE 193 MG/DL (70-110)
[2023-07-23 16:45] LABS: GLUCOMETER DEV NAME(LOC) BV2X.2; GLUCOSE,POINT OF CARE 261 MG/DL (70-110)
[2023-07-23 20:01] VITALS: BP 143/70; PULSE 69; RESP 17; TEMP 98; O2SAT 98
[2023-07-23 20:46] LABS: GLUCOMETER DEV NAME(LOC) BV2X.2; GLUCOSE,POINT OF CARE 219 MG/DL (70-110)
[2023-07-24 06:16] LABS: GLUCOMETER DEV NAME(LOC) BV2X.2; GLUCOSE,POINT OF CARE 151 MG/DL (70-110)
[2023-07-24 08:01] VITALS: BP 114/63; PULSE 90; RESP 16; TEMP 98.1; O2SAT 98
[2023-07-24 11:26] LABS: GLUCOMETER DEV NAME(LOC) BV2X.2; GLUCOSE,POINT OF CARE 198 MG/DL (70-110)
[2023-07-24 16:45] LABS: GLUCOMETER DEV NAME(LOC) BV2X.2; GLUCOSE,POINT OF CARE 269 MG/DL (70-110)
[2023-07-24 20:01] VITALS: BP 144/70; PULSE 89; RESP 16; TEMP 98; O2SAT 96
[2023-07-24 21:00] LABS: GLUCOMETER DEV NAME(LOC) BV2X.2; GLUCOSE,POINT OF CARE 246 MG/DL (70-110)
[2023-07-25 06:41] LABS: GLUCOMETER DEV NAME(LOC) BV2X.2; GLUCOSE,POINT OF CARE 185 MG/DL (70-110)
[2023-07-25 10:14] VITALS: BP 137/68; PULSE 89; RESP 20; TEMP 97.8; O2SAT 98
[2023-07-25 11:45] LABS: GLUCOMETER DEV NAME(LOC) BV2X.2; GLUCOSE,POINT OF CARE 168 MG/DL (70-110)
[2023-07-25 16:16] LABS: GLUCOMETER DEV NAME(LOC) BV2X.2; GLUCOSE,POINT OF CARE 291 MG/DL (70-110)
[2023-07-25 20:11] VITALS: BP 124/74; PULSE 78; RESP 18; TEMP 97.8; O2SAT 98
[2023-07-25 20:51] LABS: GLUCOMETER DEV NAME(LOC) BV2X.2; GLUCOSE,POINT OF CARE 161 MG/DL (70-110)
[2023-07-26 05:51] LABS: GLUCOMETER DEV NAME(LOC) BV2X.2; GLUCOSE,POINT OF CARE 197 MG/DL (70-110)
[2023-07-26 08:00] VITALS: BP 106/66; PULSE 76; RESP 16; TEMP 97.4; O2SAT 96
[2023-07-26 11:40] LABS: GLUCOMETER DEV NAME(LOC) BV2X.2; GLUCOSE,POINT OF CARE 150 MG/DL (70-110)
[2023-07-26 16:31] LABS: GLUCOMETER DEV NAME(LOC) BV2X.2; GLUCOSE,POINT OF CARE 310 MG/DL (70-110)
[2023-07-26 20:07] VITALS: BP 106/76; PULSE 90; RESP 16; TEMP 97.1; O2SAT 97
[2023-07-26 20:25] LABS: GLUCOMETER DEV NAME(LOC) BV2X.2; GLUCOSE,POINT OF CARE 213 MG/DL (70-110)
[2023-07-27 00:47] VITALS: BP 145/75; PULSE 89; RESP 16; TEMP 97.8; O2SAT 98
[2023-07-27 05:56] LABS: GLUCOMETER DEV NAME(LOC) BV2X.2; GLUCOSE,POINT OF CARE 227 MG/DL (70-110)
[2023-07-27 08:00] VITALS: BP 130/78; PULSE 96; RESP 16; TEMP 97.8; O2SAT 94
[2023-07-27 10:55] VITALS: RESP 18
[2023-07-27 11:20] LABS: GLUCOMETER DEV NAME(LOC) BV2X.2; GLUCOSE,POINT OF CARE 148 MG/DL (70-110)
[2023-07-27 11:55] VITALS: RESP 18
[2023-07-27 16:35] LABS: GLUCOMETER DEV NAME(LOC) BV2X.2; GLUCOSE,POINT OF CARE 312 MG/DL (70-110)
[2023-07-27 20:17] VITALS: BP 132/65; PULSE 72; RESP 18; TEMP 97.7; O2SAT 95
[2023-07-27 20:20] LABS: GLUCOMETER DEV NAME(LOC) BV2X.2; GLUCOSE,POINT OF CARE 236 MG/DL (70-110)
[2023-07-28 06:20] LABS: GLUCOMETER DEV NAME(LOC) BV2X.2; GLUCOSE,POINT OF CARE 226 MG/DL (70-110)
[2023-07-28 08:05] VITALS: BP 145/83; PULSE 82; RESP 18; TEMP 97.7; O2SAT 97
[2023-07-28 11:51] LABS: GLUCOMETER DEV NAME(LOC) BV2X.2; GLUCOSE,POINT OF CARE 190 MG/DL (70-110)
[2023-07-28] MEDS: TUBERCULIN, PURIFIED PROTEIN DERIVATIVE 5 TU/0.1 ML SYRINGE ID ONE (16:31)
[2023-07-28 16:35] LABS: GLUCOMETER DEV NAME(LOC) BV2X.2; GLUCOSE,POINT OF CARE 296 MG/DL (70-110)
[2023-07-28 20:45] VITALS: RESP 18
[2023-07-28 21:11] LABS: GLUCOMETER DEV NAME(LOC) BV2X.2; GLUCOSE,POINT OF CARE 225 MG/DL (70-110)
[2023-07-29 06:26] LABS: GLUCOMETER DEV NAME(LOC) BV2X.2; GLUCOSE,POINT OF CARE 195 MG/DL (70-110)
[2023-07-29 08:14] VITALS: BP 123/70; PULSE 92; RESP 17; TEMP 97.2; O2SAT 96
[2023-07-29 11:21] LABS: GLUCOMETER DEV NAME(LOC) BV2X.2; GLUCOSE,POINT OF CARE 157 MG/DL (70-110)
[2023-07-29 16:55] LABS: GLUCOMETER DEV NAME(LOC) BV2X.2; GLUCOSE,POINT OF CARE 277 MG/DL (70-110)
[2023-07-29 20:00] VITALS: BP 139/76; PULSE 82; RESP 19; TEMP 96.8; O2SAT 95
[2023-07-29 20:30] LABS: GLUCOMETER DEV NAME(LOC) BV2X.2; GLUCOSE,POINT OF CARE 213 MG/DL (70-110)
[2023-07-30 06:36] LABS: GLUCOMETER DEV NAME(LOC) BV2X.2; GLUCOSE,POINT OF CARE 147 MG/DL (70-110)
[2023-07-30 08:20] VITALS: BP 118/70; PULSE 91; RESP 17; TEMP 98.4; O2SAT 97
[2023-07-30 11:20] LABS: GLUCOMETER DEV NAME(LOC) BV2X.2; GLUCOSE,POINT OF CARE 137 MG/DL (70-110)
[2023-07-30 16:06] LABS: GLUCOMETER DEV NAME(LOC) BV2X.2; GLUCOSE,POINT OF CARE 282 MG/DL (70-110)
[2023-07-30 20:09] VITALS: BP 129/80; PULSE 85; RESP 18; TEMP 97.6; O2SAT 99
[2023-07-30 21:11] LABS: GLUCOMETER DEV NAME(LOC) BV2X.2; GLUCOSE,POINT OF CARE 197 MG/DL (70-110)
[2023-07-30] MEDS: INSULIN GLARGINE,HUM.REC.ANLOG 100 UNITS/ML SQ SCH (21:49)
[2023-07-31 06:21] LABS: GLUCOMETER DEV NAME(LOC) BV2X.2; GLUCOSE,POINT OF CARE 217 MG/DL (70-110)
[2023-07-31 08:10] VITALS: BP 119/72; PULSE 84; RESP 17; TEMP 97.6; O2SAT 96
[2023-07-31 11:46] LABS: GLUCOMETER DEV NAME(LOC) BV2X.2; GLUCOSE,POINT OF CARE 154 MG/DL (70-110)
[2023-07-31 16:46] LABS: GLUCOMETER DEV NAME(LOC) BV2X.2; GLUCOSE,POINT OF CARE 219 MG/DL (70-110)
[2023-07-31 20:02] VITALS: BP 125/73; PULSE 94; RESP 20; TEMP 97.2; O2SAT 96
[2023-07-31 20:25] LABS: GLUCOMETER DEV NAME(LOC) BV2X.2; GLUCOSE,POINT OF CARE 174 MG/DL (70-110)
[2023-08-01 06:46] VITALS: BP 128/67; PULSE 77; RESP 17; TEMP 97.8
[2023-08-01 06:55] LABS: GLUCOMETER DEV NAME(LOC) BV2X.2; GLUCOSE,POINT OF CARE 128 MG/DL (70-110)
[2023-08-01 08:26] VITALS: BP 123/87; PULSE 97; RESP 18; TEMP 98; O2SAT 98
[2023-08-01 09:02] VITALS: RESP 17
[2023-08-01 10:02] VITALS: RESP 16
[2023-08-01 12:10] LABS: GLUCOMETER DEV NAME(LOC) BV2X.2; GLUCOSE,POINT OF CARE 202 MG/DL (70-110)
[2023-08-01 17:05] LABS: GLUCOMETER DEV NAME(LOC) BV2X.2; GLUCOSE,POINT OF CARE 206 MG/DL (70-110)
[2023-08-01 20:01] VITALS: BP 122/62; PULSE 77; RESP 19; TEMP 98; O2SAT 97
[2023-08-01 20:50] LABS: GLUCOMETER DEV NAME(LOC) BV2X.2; GLUCOSE,POINT OF CARE 222 MG/DL (70-110)
[2023-08-02 03:46] VITALS: BP 140/85; PULSE 84; RESP 18; TEMP 97; O2SAT 98
[2023-08-02 06:35] LABS: GLUCOMETER DEV NAME(LOC) BV2X.2; GLUCOSE,POINT OF CARE 185 MG/DL (70-110)
[2023-08-02 10:08] VITALS: BP 134/77; PULSE 74; RESP 17; TEMP 97.8; O2SAT 98
[2023-08-02 11:36] LABS: GLUCOMETER DEV NAME(LOC) BV2X.2; GLUCOSE,POINT OF CARE 154 MG/DL (70-110)
[2023-08-02 16:31] LABS: GLUCOMETER DEV NAME(LOC) POC.BV; POC SARS-COV2 AG, FIA NEGATIVE (NEGATIVE)
[2023-08-02 16:40] LABS: GLUCOMETER DEV NAME(LOC) BV2X.2; GLUCOSE,POINT OF CARE 226 MG/DL (70-110)
[2023-08-02 20:00] LABS: GLUCOMETER DEV NAME(LOC) POC.BV; POC SARS-COV2 AG, FIA NEGATIVE (NEGATIVE)
[2023-08-02 20:28] VITALS: BP 117/76; PULSE 84; RESP 18; TEMP 97.3; O2SAT 93
[2023-08-02 20:50] LABS: GLUCOMETER DEV NAME(LOC) BV2X.2; GLUCOSE,POINT OF CARE 144 MG/DL (70-110)
[2023-08-03 06:20] LABS: GLUCOMETER DEV NAME(LOC) BV2X.2; GLUCOSE,POINT OF CARE 135 MG/DL (70-110)
[2023-08-03 08:37] VITALS: BP 119/80; PULSE 84; RESP 18; TEMP 97.3; O2SAT 96
[2023-08-03] MEDS ORDERED: CHLO50TA61 PO (08:49)
[2023-08-03] MEDS ORDERED: CHLO100T42 PO (08:50)
[2023-08-03] MEDS ORDERED: METF-1211 PO (08:52)
[2023-08-03] MEDS ORDERED: MELO-107 PO (08:53)
[2023-08-03] MEDS ORDERED: ATEN-73 PO (08:53)
[2023-08-03] MEDS ORDERED: ATOR20TA PO (08:54)
== END 2023-08-03 12:31 | DRG 885 ==
LOC: EMS 13:08 → B2X 03-08 14:42
PROVIDERS: ADMIT Psychiatry & Neurology Psychiatry; ATTEND Psychiatry & Neurology Psychiatry
DX: F25.1 Schizoaffective disorder, depressive type (principal); N18.9 Chronic kidney disease, unspecified; R45.851 Suicidal ideations; E87.1 Hypo-osmolality and hyponatremia; E03.9 Hypothyroidism, unspecified; Z20.822 Contact with and (suspected) exposure to COVID-19; F41.9 Anxiety disorder, unspecified; I12.9 Hypertensive chronic kidney disease with stage 1 through stage 4 chronic kidney disease, or unspecified chronic kidney disease; K59.00 Constipation, unspecified; G47.00 Insomnia, unspecified; E78.5 Hyperlipidemia, unspecified; F12.90 Cannabis use, unspecified, uncomplicated; Z53.20 Procedure and treatment not carried out because of patient's decision for unspecified reasons
CPT/HCPCS: 80053; 80061; 80164; 80307; 81003; 82565; 82962; 83036; 83735; 84100; 84443; 84520; 85025; 87081; 99285; G0480; J1200; J1630; J1815; J2060; J3230